=== PATIENT | male | born 1955 | race Native Hawaiian/Other Pacific Islander ===

== ENCOUNTER → 2018-09-30 | Outpatient (CLI) | payer MEDICARE, OTHER ==
[2018-09-30 14:45] LABS: Blood Urea Nitrogen 12 mg/dL (9-20)
--- NOTE | 2018-10-01 10:29 | CT ---
EXAMINATION TYPE: CT ChestAbdPelvis w con DATE OF EXAM: 09/30/2018 INDICATION: Follow up for lung CA COMPARISON: No comparisons at this location. CT DLP: 2264.3 mGycm CONTRAST: Performed with Oral Contrast and with IV Contrast, patient injected with 100 mL of Isovue 300. TECHNIQUE: Axial images at 5 mm thick sections. Reconstructed images in the coronal plane. Delayed images through the kidneys. FINDINGS: CT CHEST: Portion of the thyroid visualized is normal. There is a lobular mass at the anterior right apex measuring 1.8 x 1.7 cm. Series 4 image 16. There is a spiculated mass in the periphery of the right midlung measuring 3.0 by 2.5 cm. Series 4 im age 23. There is a nodular density within the periphery of the right lower lobe measuring 0.4 cm. Series 4 im age 35. Punctate density is in the anterior left upper lobe measuring 0.2 cm. Series 4 image 16. Some mild streak opacities within the lingula the medial right middle lobe. There is soft tissue thickening through the mediastinum. This may has some compression of the superio r vena cava. Contrast passes through this region. This extends to the hilar region on the right. The ascending aorta diameter at the level of the main pulmonary artery is 3.1 cm. The main pulmonary artery diameter at the bifurcation is 2.[address] ABDOMEN: Liver: There is a 5.5 cm cyst measuring 4 Hounsfield units in the superior posterior right lobe liver . Liver otherwise has a normal density without discrete masses or additional cysts. Spleen: Normal Pancreas: Normal Adrenal glands: The adrenal glands are normal. Gallbladder: Normal Kidneys: No masses are evident. No hydronephrosis is present. There is a 3.6 cm cyst on the superio r lateral aspect of the right kidney measuring 8 Hounsfield units. A 1.5 cm cyst measuring 3 Hounsfie ld units on the posterior mid right kidney. There is likely a 0.8 cm cortical renal cyst on the mid l ateral right kidney. Delayed images were obtained through the kidneys. Aorta: Vascular calcification is within the aorta. Renal arteries, celiac axis and superior mesenter ic arteries appear normal. There is an infrarenal abdominal aortic aneurysm measuring 4.0 cm. This ex tends to the aortic bifurcation. Inferior vena cava: Normal. CT PELVIS: Loops of bowel within the abdomen and pelvis are normal. There are loops of bowel which are incom pletely distended or lack oral contrast limiting their evaluation. Appendix: Normal as visualized. Urinary bladder: Normal. Genitourinary structures: Prostate is prominent. Scattered calcifications are present. Osseous structures: No suspicious lytic or sclerotic lesions. A 0.7 cm smooth margined round densitie s at the superior left S1 vertebral body may be a bone island. Some sclerosis is along the sacroiliac joint on the right. There appears to be a smooth margin hypodense area within the anterior thoracic vertebral body measuring 0.9 cm. Series 3 image 61. Multiple old rib fractures are evident on the rig ht. 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 Image 40. IMPRESSIONS: 1. Several right lung masses and nodules and mediastinal soft tissue thickening can be compatible wit h the patient's lung cancer. 2. Abdominal aortic aneurysm of 4.0 cm. 3. Renal and hepatic cysts.
== END | disposition home or self-care (01) ==
LOC: RADCTMAIN 14:03
PROVIDERS: ATTEND Internal Medicine Hematology & Oncology
DX: C34.91 Malignant neoplasm of unspecified part of right bronchus or lung (principal); I71.4 Abdominal aortic aneurysm, without rupture; K76.89 Other specified diseases of liver; N28.1 Cyst of kidney, acquired; Z91.011 Allergy to milk products
CPT/HCPCS: 82565; 84520; 71260; 74177; 36415; Q9967

== ENCOUNTER → 2018-12-16 | Outpatient (CLI) | payer MEDICARE, OTHER ==
--- NOTE | 2018-12-16 12:08 | CT ---
EXAMINATION TYPE: CT ChestAbdPelvis w con DATE OF EXAM: 12/16/2018 COMPARISON: CT chest abdomen pelvis September 30, 2018 and older outside CTs. HISTORY: Lung cancer progress study. Completed chemotherapy [address] DLP: 2462.5 mGycm. Automated Exposure Control for Dose Reduction was Utilized. CONTRAST: CT scan of the thorax, abdomen and pelvis is performed with IV Contrast, patient injected with 100ml mL of Isovue 300. FINDINGS: LUNGS: There is interval progression from most recent CT with spiculated right upper lung mass latera lly measuring 6.3 x 5.0 cm current study image 21 versus 3.0 x 2.5 cm prior study now abutting the ri ght pleural surface. Left lung remains clear. No pleural effusion or pneumothorax is evident. MEDIASTINUM: There it is redemonstration of confluent right paratracheal adenopathy encasing the SVC extending towards right hilar level where there is mass effect on the right upper and middle lobe br onchi, this measures roughly 4.6 x 3.7 cm axial image 21 not significantly changed in size from most recent CT axial image 23. There is anterior mediastinal extension adjacent to the right aspect of the ascending aorta redemonstrated. There are enlarging but subcentimeter left paratracheal and AP windo w lymph nodes. There is stable slightly enlarged subcarinal lymph node measuring 2.4 x 1.2 cm axial i mage 26 No cardiomegaly or pericardial effusion is seen. Coronary artery calcification is again see n. OTHER: Bilateral gynecomastia is redemonstrated left more prominent than right. LIVER/GB: There is stable 5.2 cm thin-walled cyst posterior right hepatic lobe. Liver remains diffuse ly low dense relative to spleen but there are now new innumerable heterogeneous hypodense masses, lar gest anterior left hepatic lobe measures 8.4 cm long axis axial image 56. PANCREAS: No significant abnormality is seen. SPLEEN: No significant abnormality is seen. ADRENALS: No significant abnormality is seen. KIDNEYS: Several simple appearing thin-walled cysts scattered throughout the right kidney are redemon strated.. BOWEL: Oral contrast reaches level of distal transverse colon. No suspicious small or large bowel dil atation is seen GENITAL ORGANS: No gross abnormality seen. LYMPH NODES: No greater than 1cm abdominal or pelvic lymph nodes are appreciated. OSSEOUS STRUCTURES: Osseous structures are demineralized. Slight S-shaped scoliotic curvature remains present. Osseous metastatic disease suspected there is sclerotic focus superior sternum coronal imag e 29 noted for reference new from outside CT. Sclerotic right lateral rib lesions suspected for refer ence coronal image 51. Some vague areas of sclerosis with mild height loss involving superior endplat es T10 and T7 vertebra are noted on current study. OTHER: No significant additional abnormality is seen. IMPRESSION: Interval disease progression with worsening right lung mass, stable mediastinal adenopath y but new hepatic and osseous metastatic disease.
== END | disposition home or self-care (01) ==
LOC: RADCTMAIN 09:25
PROVIDERS: ATTEND Internal Medicine Hematology & Oncology
DX: C34.91 Malignant neoplasm of unspecified part of right bronchus or lung (principal); C79.51 Secondary malignant neoplasm of bone; C78.7 Secondary malignant neoplasm of liver and intrahepatic bile duct; Z91.011 Allergy to milk products
CPT/HCPCS: 71260; 74177; Q9967

== ENCOUNTER 2019-01-30 11:20 | Inpatient (IN) | payer MEDICARE, OTHER ==
[2019-01-30] MEDS ORDERED: SODIUM CHLORIDE 0.9% 500 ML 500 ML IV STA (12:28)
[2019-01-30] MEDS ORDERED: IPRATROPIUM-ALBUTEROL 3 ML NEB INHALATION STA (12:33)
--- NOTE | 2019-01-30 12:33 | ED ---
General Adult HPI - General Chief complaint: Abdominal Pain Stated complaint: water retention/trouble urinating Time Seen by Provider: 01/30/19 12:22 Source: patient, family, RN notes reviewed, old records reviewed Mode of arrival: ambulatory Limitations: no limitations - History of Present Illness Initial comments: 63-year-old male history of lung cancer currently on chemotherapy presents with multiple complaints. Patient accompanied by family, they are able to give history. Patient has had decreased urine output, hematuria. Patient reported increased confusion over the past 3 days. He has not been eating or drinking well. His had significant diarrhea as well. Patient is currently on chemotherapy for lung cancer, last treatment was January 10. Patient denies any pain complaints. He does report mild cough, history of COPD, he is currently smoking. Somewhat confused during history. - Related Data Home Medications Medication Instructions Recorded Confirmed Cyclobenzaprine [Flexeril] 10 mg PO TID 09/16/18 01/30/19 Bimatoprost [Lumigan .01% Ophth 1 drop BOTH EYES DAILY 01/30/19 01/30/19 Soln] Hydrocodone/Acetaminophen [[place] 1 tab PO TID PRN 01/30/19 01/30/19 7.5-325] Prochlorperazine [Compazine] 10 mg PO Q6H 01/30/19 01/30/19 Timolol 0.5% Ophth Soln [Timoptic 1 drop BOTH EYES BID 01/30/19 01/30/19 0.5% Ophth Soln] traZODone HCL 50 mg PO HS 01/30/19 01/30/19 Allergies Allergy/AdvReac Type Severity Reaction Status Date / Time Milk Containing Products Allergy Unknown Verified 01/30/19 13:22 Review of Systems ROS Statement: Those systems with pertinent positive or pertinent negative responses have been documented in the HPI. ROS Other: All systems not noted in ROS Statement are negative. Past Medical History Past Medical History: Cancer, COPD Additional Past Medical History / Comment(s): LUNG WITH METASTASIS. History of Any Multi-Drug Resistant Organisms: None Reported Past Surgical History: Orthopedic Surgery Additional Past Surgical History / Comment(s): RIGHT KNEE SURGERY. Past Anesthesia/Blood Transfusion Reactions: No Reported Reaction Past Psychological History: No Psychological Hx Reported Smoking Status: Current every day smoker Past Alcohol Use History: None Reported Past Drug Use History: None Reported General Exam Limitations: no limitations General appearance: alert, in no apparent distress Head exam: Present: atraumatic, normocephalic Eye exam: Present: normal appearance, PERRL ENT exam: Present: mucous membranes dry Neck exam: Absent: normal inspection, tenderness Respiratory exam: Present: wheezes, rhonchi. Absent: respiratory distress Cardiovascular Exam: Present: normal rhythm, tachycardia GI/Abdominal exam: Present: soft, distended. Absent: tenderness, guarding, rebound Extremities exam: Present: normal inspection, normal capillary refill. Absent: pedal edema Neurological exam: Present: alert. Absent: motor sensory deficit Skin exam: Present: warm, dry, intact. Absent: cyanosis, diaphoretic Course Vital Signs 01/30/19 01/30/19 01/30/19 11:25 12:39 12:50 Temperature 97.3 F L Pulse Rate 115 H 84 84 Respiratory 24 Rate Blood Pressure 117/74 O2 Sat by Pulse 96 Oximetry Medical Decision Making - Medical Decision Making 63-year-old presenting with decreased urine output, confusion, currently being treated for lung cancer on chemotherapy. Stable vitals, nonfocal neurologic exam. Head CT is obtained negative for intracranial hemorrhage, chest x-ray shows persistent lung mass with concern for close obstructive pneumonia. Patient started on antibiotics in the emergency department he has a white blood cell count 10.6, hemoglobin 10.2, mild lactic acid 2.7. Urinalysis unremarkable. Patient will be admitted to Dr. Tijerina, case is discussed, oncology placed on consult. - Lab Data Result diagrams: 01/30/19 12:35 01/30/19 12:35 Lab Results 01/30/19 01/30/19 01/30/19 Range/Units 12:35 12:35 12:35 WBC 10.6 (3.8-10.6) k/uL RBC 3.59 L (4.30-5.90) m/uL Hgb 10.2 L (13.0-17.5) gm/dL Hct 34.0 L (39.0-53.0) % MCV 94.8 (80.0-100.0) fL MCH 28.4 (25.0-35.0) pg MCHC 30.0 L (31.0-37.0) g/dL RDW 16.4 H (11.5-15.5) % Plt Count 312 (150-450) k/uL Neutrophils % 76 % Lymphocytes % 15 % Monocytes % 4 % Eosinophils % 2 % Basophils % 1 % Neutrophils # 8.0 H (1.3-7.7) k/uL Lymphocytes # 1.6 (1.0-4.8) k/uL Monocytes # 0.5 (0-1.0) k/uL Eosinophils # 0.2 (0-0.7) k/uL Basophils # 0.1 (0-0.2) k/uL Hypochromasia Marked Anisocytosis Slight PT (9.0-12.0) sec INR (<1.2) APTT (22.0-30.0) sec VBG pH (7.31-7.41) VBG pCO2 (37-51) mmHg VBG HCO3 (24-28) mmol/L Sodium 137 (137-145) mmol/L Potassium 4.2 (3.5-5.1) mmol/L Chloride 102 (98-107) mmol/L Carbon Dioxide 25 (22-30) mmol/L Anion Gap 10 mmol/L BUN 10 (9-20) mg/dL Creatinine 0.58 L (0.66-1.25) mg/dL Est GFR (CKD-EPI)AfAm >90 (>60 ml/min/1.73 sqM) Est GFR (CKD-EPI)NonAf >90 (>60 ml/min/1.73 sqM) Glucose 98 (74-99) mg/dL Plasma Lactic Acid Flavio 2.7 H* (0.7-2.0) mmol/L Calcium 9.1 (8.4-10.2) mg/dL Total Bilirubin 1.0 (0.2-1.3) mg/dL AST 62 H (17-59) U/L ALT 59 (21-72) U/L Alkaline Phosphatase 309 H (38-126) U/L Total Protein 6.7 (6.3-8.2) g/dL Albumin 3.0 L (3.5-5.0) g/dL Urine Color Urine Appearance (Clear) Urine pH (5.0-8.0) Ur Specific [place] (1.001-1.035) Urine Protein (Negative) Urine Glucose (UA) (Negative) Urine Ketones (Negative) Urine Blood (Negative) Urine Nitrite (Negative) Urine Bilirubin (Negative) Urine Urobilinogen (<2.0) mg/dL Ur Leukocyte Esterase (Negative) Urine RBC (0-5) /hpf Urine WBC (0-5) /hpf Ur Squamous Epith Cells (0-4) /hpf Amorphous Sediment (None) /hpf Hyaline Casts (0-2) /lpf Urine Mucus (None) /hpf 01/30/19 01/30/19 01/30/19 Range/Units 12:35 12:35 13:50 WBC (3.8-10.6) k/uL RBC (4.30-5.90) m/uL Hgb (13.0-17.5) gm/dL Hct (39.0-53.0) % MCV (80.0-100.0) fL MCH (25.0-35.0) pg MCHC (31.0-37.0) g/dL RDW (11.5-15.5) % Plt Count (150-450) k/uL Neutrophils % % Lymphocytes % % Monocytes % % Eosinophils % % Basophils % % Neutrophils # (1.3-7.7) k/uL Lymphocytes # (1.0-4.8) k/uL Monocytes # (0-1.0) k/uL Eosinophils # (0-0.7) k/uL Basophils # (0-0.2) k/uL Hypochromasia Anisocytosis PT 11.5 (9.0-12.0) sec INR 1.1 (<1.2) APTT 24.1 (22.0-30.0) sec VBG pH 7.40 (7.31-7.41) VBG pCO2 43 (37-51) mmHg VBG HCO3 26 (24-28) mmol/L Sodium (137-145) mmol/L Potassium (3.5-5.1) mmol/L Chloride (98-107) mmol/L Carbon Dioxide (22-30) mmol/L Anion Gap mmol/L BUN (9-20) mg/dL Creatinine (0.66-1.25) mg/dL Est GFR (CKD-EPI)AfAm (>60 ml/min/1.73 sqM) Est GFR (CKD-EPI)NonAf (>60 ml/min/1.73 sqM) Glucose (74-99) mg/dL Plasma Lactic Acid Flavio (0.7-2.0) mmol/L Calcium (8.4-10.2) mg/dL Total Bilirubin (0.2-1.3) mg/dL AST (17-59) U/L ALT (21-72) U/L Alkaline Phosphatase (38-126) U/L Total Protein (6.3-8.2) g/dL Albumin (3.5-5.0) g/dL Urine Color Yellow Urine Appearance Clear (Clear) Urine pH 6.5 (5.0-8.0) Ur Specific [place] 1.027 (1.001-1.035) Urine Protein 1+ H (Negative) Urine Glucose (UA) Negative (Negative) Urine Ketones Negative (Negative) Urine Blood Negative (Negative) Urine Nitrite Negative (Negative) Urine Bilirubin 1+ H (Negative) Urine Urobilinogen 6.0 (<2.0) mg/dL Ur Leukocyte Esterase Negative (Negative) Urine RBC <1 (0-5) /hpf Urine WBC 1 (0-5) /hpf Ur Squamous Epith Cells 1 (0-4) /hpf Amorphous Sediment Rare H (None) /hpf Hyaline Casts 4 H (0-2) /lpf Urine Mucus Moderate H (None) /hpf Disposition Clinical Impression: Dehydration, Lactic acidosis, Pneumonia Disposition: ADMITTED IP TO THIS [facility] Condition: Stable Is patient prescribed a controlled substance at d/c from ED?: No Referrals: Clay Mike MD [Primary Care Provider] - 1-2 days Decision to Admit Reason: Admit from EC Decision Date: 01/30/19 Decision Time: 15:18
[2019-01-30 13:11] LABS: Anisocytosis Slight; Basophils # (A) 0.1 k/uL (0-0.2); Basophils % (A) 1 %; Eosinophils # (A) 0.2 k/uL (0-0.7); Eosinophils % (A) 2 %; HGB 10.2 gm/dL (13.0-17.5); Hypochromasia Marked; Lymphocytes # (A) 1.6 k/uL (1.0-4.8); Lymphocytes % (A) 15 %; MCH 28.4 pg (25.0-35.0); MCV 94.8 fL (80.0-100.0); Mean Platelet Volume 7.8; Monocytes # (A) 0.5 k/uL (0-1.0); Monocytes % (A) 4 %; Neutrophils % (A) 76 %; Platelet Count 312 k/uL (150-450); RBC 3.59 m/uL (4.30-5.90); RDW 16.4 % (11.5-15.5); WBC 10.6 k/uL (3.8-10.6)
[2019-01-30 13:21] LABS: VBG PH 7.4 (7.31-7.41)
[2019-01-30 13:23] LABS: INR 1.1 (<1.2); Partial Thromboplastin Time 24.1 sec (22.0-30.0); Prothrombin Time 11.5 sec (9.0-12.0)
--- NOTE | 2019-01-30 13:23 | CT ---
EXAMINATION TYPE: CT brain wo con DATE OF EXAM: 01/30/2019 COMPARISON: Pain INDICATION: altered mental status, lung CA DLP: 1058.4 mGycm, Automated exposure control for dose reduction was used. CONTRAST: None CT of the brain is performed utilizing 3 mm thick sections through the posterior fossa and 3 mm thick sections through the remaining calvarium. Study is performed within 24 hours of arrival to the hosp ital. No abnormal hyperdensity is present to suggest an acute intracranial hemorrhage. No mass lesion is evident. No acute infarcts are evident. Ventricles and sulci are appropriate for the patient age. Some minimal mucosal thickening is within ethmoid air cells and maxillary sinuses. Mastoid air cells are clear. No suspicious changes to suggest metastatic disease within the intracranial or calvarial skull. IMPRESSIONS: 1. No acute intracranial process.
--- NOTE | 2019-01-30 13:29 | XR ---
EXAMINATION TYPE: XR chest 2V DATE OF EXAM: 01/30/2019 COMPARISON: CT chest 12/16/2018 INDICATION: Cough TECHNIQUE: Frontal and lateral views of the chest are obtained. FINDINGS: The heart size is normal. The pulmonary vasculature is normal. There appears to be a mass in the upper outer aspect right upper lobe. Additional infiltrate is prese nt. Lung masses present on the CT exam. IMPRESSION: 1. Persistent mass periphery right upper lobe with adjacent infiltrate. Some superimposed pneumonia s hould be considered.
[2019-01-30 13:30] LABS: ALT 59 U/L (21-72); AST 62 U/L (17-59); Alkaline Phosphatase 309 U/L (38-126); Anion Gap 10 mmol/L; Blood Urea Nitrogen 10 mg/dL (9-20); Calcium 9.1 mg/dL (8.4-10.2); Carbon Dioxide 25 mmol/L (22-30); Chloride 102 mmol/L (98-107); Glucose 98 mg/dL (74-99); Potassium 4.2 mmol/L (3.5-5.1); Sodium 137 mmol/L (137-145); Total Protein 6.7 g/dL (6.3-8.2)
[2019-01-30] MEDS ORDERED: CEFEPIME 2 GM in SODIUM CHLORIDE 0.9% 100 ML IVPB STA (14:26)
[2019-01-30] MEDS ORDERED: VANCOMYCIN IV PER PHARMACY 1 EACH MISC MISCELLANE PRN (14:26)
[2019-01-30] MEDS ORDERED: VANCOMYCIN 2,000 MG in SODIUM CHLORIDE 0.9% 500 ML 500 ML IVPB STA (14:43)
[2019-01-30 14:46] LABS: Amorphous Sediment,Urine Rare /hpf; Appearance,Urine Clear (Clear); Bilirubin,Urine 1+ (Negative); Blood,Urine Negative (Negative); Color,Urine Yellow; Glucose,Urine (UA) Negative (Negative); Hyaline Casts,Urine 4 /lpf (0-2); Ketones,Urine Negative (Negative); Leukocyte Esterase,Urine Negative (Negative); Mucus,Urine Moderate /hpf; Nitrite,Urine Negative (Negative); PH, Urine 6.5 (5.0-8.0); Protein,Urine 1+ (Negative); RBC,Urine <1 /hpf (0-5); Specific Gravity,Urine 1.027 (1.001-1.035); Squamous Epithelial Cell,Urine 1 /hpf (0-4); WBC,Urine 1 /hpf (0-5)
[2019-01-30] MEDS ORDERED: HYDROmorphone 0.5 MG/0.5 ML SYRINGE IVP PRN (15:11)
[2019-01-30] MEDS ORDERED: NALOXONE 0.4 MG/ML 1 ML VIAL IV PRN (15:11)
[2019-01-30] MEDS ORDERED: ACETAMINOPHEN TAB 325 MG TAB PO PRN (15:11)
[2019-01-30] MEDS: SODIUM CHLORIDE 0.9% 1,000 ML IV SCH (19:30)
[2019-01-30] MEDS ORDERED: HYDROcodone/APAP 7.5-325MG 1 EACH TAB PO PRN (20:09)
[2019-01-30 20:19] VITALS: BMI 33.0
[2019-01-30] MEDS ORDERED: IPRATROPIUM-ALBUTEROL 3 ML NEB INHALATION PRN (20:41)
[2019-01-30 21:07] LABS: ABG Base Excess 2.9 mmol/L; ABG HCO3 27 mmol/L (21-25); ABG Oxygen Saturation 93.3 % (94-97); ABG PCO2 41 mmHg (35-45); ABG PH 7.43 (7.35-7.45); ABG PO2 69 mmHg (83-108); ABG TCO2 29 mmol/L (19-24)
[2019-01-30] MEDS: CYCLOBENZAPRINE 10 MG TAB PO SCH (22:13)
[2019-01-30 22:14] LABS: Glucose,Whole Blood 84 mg/dL (75-99)
[2019-01-30] MEDS: TIMOLOL 0.5% OPHTH DROPS 5 ML BTL BOTH EYES SCH (22:26)
[2019-01-31] MEDS: VANCOMYCIN 1,750 MG in SODIUM CHLORIDE 0.9% 500 ML 500 ML IVPB SCH ×4 (00:31→23:43)
[2019-01-31] MEDS: SODIUM CHLORIDE 0.9% 1,000 ML IV SCH ×2 (06:30→22:17)
[2019-01-31] MEDS ORDERED: LORazepam 2 MG/ML INJ IV PRN (08:01)
[2019-01-31] MEDS ORDERED: LATANOPROST 0.005% OPHTH DROPS 2.5 ML BTL BOTH EYES SCH (09:00)
[2019-01-31] MEDS: TIMOLOL 0.5% OPHTH DROPS 5 ML BTL BOTH EYES SCH ×2 (09:03→22:13)
[2019-01-31] MEDS: CYCLOBENZAPRINE 10 MG TAB PO SCH ×4 (09:03→22:13)
[2019-01-31] MEDS: IPRATROPIUM-ALBUTEROL 3 ML NEB INHALATION SCH ×4 (09:47→20:11)
--- NOTE | 2019-01-31 11:34 | MR ---
EXAMINATION TYPE: MR brain wo/w con DATE OF EXAM: 01/31/2019 COMPARISON: 07/28/2018 MRI, CT scan 01/30/2019 HISTORY: Lung cancer, mental status changes, aphasia TECHNIQUE: Multiplanar, multisequence images of the brain and brainstem is performed without and with IV contras t, utilizing 11.5 mL intravenous Gadavist . FINDINGS: Diffusion weighted images demonstrate no evidence of a recent infarct or other diffusion ab normality. Changes of chronic sinusitis noted. Mild generalized degenerative change seen. Areas of abnormal sign al seen on FLAIR imaging in the white matter are nonspecific but most of remote microvascular ischemi a. Midline structures demonstrate normal morphology. The craniocervical junction appears within normal limits. Post contrast images demonstrate no abnormal enhancement. The dural venous sinuses appear pa tent. There is prominence of the superior ophthalmic veins bilaterally. Due to the protocol used secondary to patient motion assessment of the cavernous sinus is limited and could be correlated with CT scan. Dural venous sinuses enhance normally. IMPRESSION: 1. No diagnostic evidence of enhancing mass. The exam was severely limited due to motion artifact. 2. Dural venous sinuses are patent. Assessment of the cavernous sinus is limited. Superior ophthalmic veins appear prominent bilaterally which can sometimes be associated with caverno us sinus abnormality or thrombosis. Recommend a dedicated CT scan given the limitation exam to assess the cavernous sinus. Report called to the patient's nurse. 3. Nonspecific white matter changes correlate for remote white matter ischemia.
--- NOTE | 2019-01-31 12:22 | P.CONS ---
History of Present Illness - Reason for Consult Consult date: 01/31/19 Extensive Stage Small Cell Lung Ca on yervoy/opdivo Requesting physician: Yunier Dodson - Chief Complaint mental status changes - History of Present Illness his is a very nice patient who presented with acute dyspnea to [facility] in July/2018,CT scan of chest revealed large right paramediastinal mass (10.1x8.6x12.6cm) that encircled the SVC,he was transferred to [facility],was evaluated by rad/onc and med/onc,diagnostic bronchoscopy done on 07/29/2018,siddiqui needle of mediastinal mass and bronchial washing were positive for small cell lung carcinoma. Brain MRI of 07/28/2018 was negative for metastatic disease. CT scan of abdomen/pelvis on 07/28/2018 revealed intermediately attenuating lesions in the liver,borderline enlarged portal hepatic and portal caval nodes,lucent lesions in spine and pelvis,the finding were suspicious for metas tatic disease. It was decided to proceed with first cycle of carboplatin/etoposide as inpatient at [facility],which he tolerated okay,subsequently,he was discharged from [facility] and had cycle#2 as outpatient on 08/26/2018. He resumed cycle#3 in our office[address] Repeat CT scan of chest/abdomen/pelvis on 09/30/2018 revealed improvement in his disease. He completed 4 cycles of carboplatin/[employer]-16 on 10/09/2018. Repeat CT scan of chest/abdomen/pelvis on 12/16/2018 revealed evidence of diseas e progression,significant increase in size in RUL mass On 01/10/2019,he started opdivo/yervoy Patient was brought into be evaluated by evaluated by Emergency with increasing mental staatus changes, hallucinations, decreased alertness, increased abdominal, throat, neck, upper and lower extremity swelling and inability to urinate. Per his son Bill he has had persistent diarrhea the past week without relief, which has made for increased fatigue. He was drinking and eating the first few days, although now he has not the past couple days. He states he has not been able to urinate, currently catheter in place. He is able to be awakened but not conversating, His ABGs are sqequate on his home dose oxygen nasal canula. Abdomen is very firm and distended and lung sounds coarse. MRI Brain was attempted but extra movement was difficult to evaluate full. Review of Systems ROS unobtainable: due to mental status Past Medical History Past Medical History: Cancer, COPD, Pneumonia Additional Past Medical History / Comment(s): LUNG WITH METASTASIS skull, kidneys, bone chemo last he believes november, going blind,glaucoma, using wheelchair mostly at home History of Any Multi-Drug Resistant Organisms: None Reported Past Surgical History: Orthopedic Surgery Additional Past Surgical History / Comment(s): RIGHT KNEE SURGERY. Past Anesthesia/Blood Transfusion Reactions: No Reported Reaction Past Psychological History: Depression Smoking Status: Current every day smoker Past Alcohol Use History: None Reported Additional Past Alcohol Use History / Comment(s): smokes 2 packs in 1 week Past Drug Use History: None Reported - Past Family History Father Family Medical History: Cancer Medications and Allergies Home Medications Medication Instructions Recorded Confirmed Type Cyclobenzaprine [Flexeril] 10 mg PO TID 09/16/18 01/30/19 History Bimatoprost [Lumigan .01% Ophth 1 drop BOTH EYES DAILY 01/30/19 01/30/19 History Soln] Hydrocodone/Acetaminophen [[place] 1 tab PO TID PRN 01/30/19 01/30/19 History 7.5-325] Prochlorperazine [Compazine] 10 mg PO Q6H 01/30/19 01/30/19 History Timolol 0.5% Ophth Soln [Timoptic 1 drop BOTH EYES BID 01/30/19 01/30/19 History 0.5% Ophth Soln] traZODone HCL 50 mg PO HS 01/30/19 01/30/19 History Allergies Allergy/AdvReac Type Severity Reaction Status Date / Time Milk Containing Products Allergy Unknown Verified 01/30/19 13:22 Physical Exam Vitals: Vital Signs Temp Pulse Pulse Resp BP BP Pulse Ox 01/31/19 10:00 84 01/31/19 09:47 84 01/31/19 05:00 97.4 F L 104 H 16 111/71 99 01/31/19 03:06 97 01/31/19 01:51 90 16 105/71 97 01/30/19 21:11 97.9 F 107 H 16 129/76 94 L 01/30/19 19:18 107 H 20 109/74 95 01/30/19 17:47 97.7 F 120 H 16 90/72 92 L 01/30/19 12:50 84 01/30/19 12:39 84 Intake and Output 01/30/19 01/31/19 01/31/19 22:59 06:59 14:59 Intake Total 1979 Balance 1979 Intake: Intake, IV Titration 800 Amount Sodium Chloride 0.9% 1, 300 000 ml @ 75 mls/hr IV . [id number] VIVIENNE Rx#:[id number] Vancomycin 1,750 mg In 500 Sodium Chloride 0.9% 500 ml 500 ml @ 167 mls/hr IVPB Q8HR VIVIENNE Rx#: [id number] Oral 1180 Other: Voiding Method Urinal # Voids 1 # Bowel Movements 1 gen: Awakens to stimuli, NAD, Breathing is labored Mouth: No mouth sores or thrush, mucus membranes dry Neck: Thick, supple, no increased adenopathy Heart: Tachy Reg Lungs: Diminished throughout, increased effort noted Abdomen: Obese, Destended, Firm, non tender Ext: Upper and lower extremity edema noted. \ Neuro: Unable to follow commands Results CBC & Chem 7: 01/31/19 12:21 01/31/19 12:21 Labs: Abnormal Lab Results - Last 24 Hours (Table) 01/30/19 01/30/19 01/30/19 Range/Units 12:35 12:35 12:35 RBC 3.59 L (4.30-5.90) m/uL Hgb 10.2 L (13.0-17.5) gm/dL Hct 34.0 L (39.0-53.0) % MCHC 30.0 L (31.0-37.0) g/dL RDW 16.4 H (11.5-15.5) % Neutrophils # 8.0 H (1.3-7.7) k/uL ABG pO2 (83-108) mmHg ABG HCO3 (21-25) mmol/L ABG Total CO2 (19-24) mmol/L ABG O2 Saturation (94-97) % Creatinine 0.58 L (0.66-1.25) mg/dL Plasma Lactic Acid Flavio 2.7 H* (0.7-2.0) mmol/L AST 62 H (17-59) U/L Alkaline Phosphatase 309 H (38-126) U/L Albumin 3.0 L (3.5-5.0) g/dL Urine Protein (Negative) Urine Bilirubin (Negative) Amorphous Sediment (None) /hpf Hyaline Casts (0-2) /lpf Urine Mucus (None) /hpf 01/30/19 01/30/19 01/30/19 Range/Units 13:50 16:32 21:04 RBC (4.30-5.90) m/uL Hgb (13.0-17.5) gm/dL Hct (39.0-53.0) % MCHC (31.0-37.0) g/dL RDW (11.5-15.5) % Neutrophils # (1.3-7.7) k/uL ABG pO2 69 L (83-108) mmHg ABG HCO3 27 H (21-25) mmol/L ABG Total CO2 29 H (19-24) mmol/L ABG O2 Saturation 93.3 L (94-97) % Creatinine (0.66-1.25) mg/dL Plasma Lactic Acid Flavio 2.5 H* (0.7-2.0) mmol/L AST (17-59) U/L Alkaline Phosphatase (38-126) U/L Albumin (3.5-5.0) g/dL Urine Protein 1+ H (Negative) Urine Bilirubin 1+ H (Negative) Amorphous Sediment Rare H (None) /hpf Hyaline Casts 4 H (0-2) /lpf Urine Mucus Moderate H (None) /hpf CT scan - chest: report reviewed MRI - head: report reviewed Assessment and Plan Plan: Assessment and Recommendations: Acute Mental Status Changes: Lethargy and Hallucinations: - MRI without acute etiology and no clear metstatic disease, rec for Sinus evaluation placed per IR - Sosa cultures in progress Pancreatitis: - Possible immune related amylase mild elevation and await Lipase Diffuse Swelling Bilateral Upper and Lower Extremities: - Obtain CT Scan Chest/Abdomen and Pelvis Diarrhea: - Obtain Stool Studies - Possibility of Immune related colitis, if this is confirmed high dose steroid intiation Small Cell Lung Cancer - Extensive Stage: - Previously Treated with Carboplatin and VP16 07/2018 through 09/2018 (4 Cycles) - Recent treatment with Yervoy and Opdivo - Status Post One Treatment with Oprivo and Yervoy on 01/10/19 Urinary Retention: Dysuria - Urinalysis and Culture - Santillan in place and draining Debility and Progressive Weakness: - Increase Activity once more alert - PT/OT Severe Protein Calorie Malnutrition: - - Likely related to decreased PO intake and diffuse generalized edema - POtential secondary effect of treatment with yervoy and opdivo - Dieticien, once cleared to swallow without aspiration risk - Currently too lethargic to drink, but did receive ativan prior to MRI Plan: - Await CT scans Chest, Abdomen, Pelvis - Reviewed MRI, will review CT sinus although this concern would likely not cause the patients overall clinical presentation - Will need to consider Infectious etiology; Consult placed for Interventional radiology for CSF Lumbar Puncture - Send fluid for cytology, albumin, meningitis panel, protein, glucose, viral PCR, Aerobic and aneroid Cultures, Gram Stain Cultures and sensitivity, and Fungal Cultures PLease - After Reviewing the above will introduce corticosteroids for treatment of immune related etiology. - Initiate imipenum for possible pneumonia and pancreatitis - Daily CBC/CMP Physician Attest: I have completed the full history and physical and agree with above dictation by May Cristina NP. Dictated as a scribe
[2019-01-31 12:24] LABS: ABG Base Excess 2.3 mmol/L; ABG HCO3 27 mmol/L (21-25); ABG Oxygen Saturation 94.7 % (94-97); ABG PCO2 47 mmHg (35-45); ABG PH 7.38 (7.35-7.45); ABG PO2 77 mmHg (83-108); ABG TCO2 29 mmol/L (19-24)
[2019-01-31 12:51] LABS: ALT 47 U/L (21-72); AST 50 U/L (17-59); Albumin 2.7 g/dL (3.5-5.0); Alkaline Phosphatase 261 U/L (38-126); Amylase 264 U/L (30-110); Anion Gap 7 mmol/L; Blood Urea Nitrogen 11 mg/dL (9-20); Calcium 9.1 mg/dL (8.4-10.2); Carbon Dioxide 26 mmol/L (22-30); Chloride 103 mmol/L (98-107); Glucose 87 mg/dL (74-99); INR 1.1 (<1.2); LDH 537 U/L (313-618); Magnesium 1.8 mg/dL (1.6-2.3); Partial Thromboplastin Time 23.9 sec (22.0-30.0); Potassium 4.3 mmol/L (3.5-5.1); Prothrombin Time 11.6 sec (9.0-12.0); Sodium 136 mmol/L (137-145); Total Bilirubin 0.8 mg/dL (0.2-1.3); Total Protein 6.1 g/dL (6.3-8.2)
[2019-01-31 12:54] LABS: Anisocytosis Slight; Basophils # (A) 0.1 k/uL (0-0.2); Basophils % (A) 1 %; Eosinophils # (A) 0.2 k/uL (0-0.7); Eosinophils % (A) 2 %; HCT 31.4 % (39.0-53.0); HGB 9.5 gm/dL (13.0-17.5); Hypochromasia Marked; Lymphocytes # (A) 1.3 k/uL (1.0-4.8); Lymphocytes % (A) 14 %; MCH 28.7 pg (25.0-35.0); MCHC 30.3 g/dL (31.0-37.0); MCV 94.9 fL (80.0-100.0); Mean Platelet Volume 8.3; Monocytes # (A) 0.4 k/uL (0-1.0); Monocytes % (A) 5 %; Neutrophils # (A) 7.3 k/uL (1.3-7.7); Neutrophils % (A) 77 %; Platelet Count 307 k/uL (150-450); RBC 3.31 m/uL (4.30-5.90); RDW 16.3 % (11.5-15.5); WBC 9.5 k/uL (3.8-10.6)
--- NOTE | 2019-01-31 14:46 | HP ---
HISTORY AND PHYSICAL CHIEF COMPLAINT: Shortness of breath. HISTORY OF PRESENT ILLNESS: This is the known admission for this 63-year-old white male who is known to have a large pulmonary neoplasm in the right upper lobe. He came to the emergency room with shortness of breath and was identified as having pneumonitis in the area of the tumor. He is very difficult to get a history from. He has dysarthria and it is not clear if he is oriented. It looks as though at home he has been on Compazine, trazodone, Lumigan eye drops, Flexeril, Vicodin and timolol eyedrops. Review of systems is not easily obtained. Laboratory studies reveal he has a hemoglobin of 9.5. Blood gases reveal a CO2 of 47 with an O2 of 69 and then 77. His lactic acid was elevated at 2.5. PHYSICAL EXAMINATION: Blood pressure is 109/67, pulse of 101, and temperature 97.4. In general he appears to be obese and somewhat lethargic. Skin is dry. Head, ears, eyes, nose, mouth and throat are unremarkable. His neck could not be examined due to its adiposity. Chest demonstrates breath sounds on both sides, but there are scattered rales. Cardiac exam demonstrates what sounded like sinus rhythm. Abdomen is protuberant, soft, nontender. Extremities are normal. Neurologically he had trouble speaking, and it was not clear that his cognition was normal. He is admitted to the hospital with the diagnoses of: 1. Bronchopneumonia. 2. Carcinoma of the lung. 3. Dysarthria and confusion. 4. Rule out central nervous system metastases. 5. Obesity. PLAN: 1. Bed rest. 2. IV fluids. 3. IV antibiotics and updrafts. 4. Consult Oncology. MMODL / IJN: [id number] /
--- NOTE | 2019-01-31 16:21 | P.CNPUL ---
History of Present Illness Consult date: 01/31/19 Requesting physician: Rajeev Tijerina Reason for consult: other Chief complaint: Abdominal pain, urinary retention, fluid retention History of present illness: This is a 63-year-old white male patient with history of small cell lung carcinoma that was diagnosed in July 2018, status post chemotherapy, currently on immunotherapy, was brought into the hospital on 01/30/2019 for complaints of abdominal pain, diarrhea, increased confusion, decreased urine output, some hematuria. Patient remains confused, he is a poor historian, the history was obtained from the chart. Initially computed tomography scan of the chest in July 2018 revealed a lot right paramediastinal mass encircling the SVC. Patient was hospitalized at that time for dyspnea. 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 Patient follows with Dr. Drake. Most recent computed tomography scan of the chest/abdomen/pelvis in November 2018 reveals evidence of disease progr ession and significant increase in the size of a right upper lobe mass, she was started on immunotherapy in the form of Yervoy/Opdivo. Brain CT showed no acute intracranial process, chest x-ray showed persistent mass in the right upper lobe with adjacent infiltrate. MRI of the brain was obtained, and showed no diagnostic evidence of enhancing mass, and possibility of cavernous sinus abnormality. Labs showed a white blood cell count of 10.6, hemoglobin of 10.2, INR 1.1, electrolytes are within normal limits, BUN is 10, creatinine 0.58, AST was 62, ALT was 59, alkaline phosphatase was 309, LDH was 537, albumin was 2.7, amylase was 264, lipase was 2507, cortisol was 20. Urinalysis showed 1+ bilirubin, negative for lupus, no significant red blood cells oh WBCs. Her evaluation patient is mumbling, he is somnolent, blood gas was obtained and it showed a pO2 of 77, pCO2 47, and pH of 7.38. No acute distress, patient still remains confused, no evidence of respiratory difficulty, minute is obese, but nontender, and the patient is a current smoker. Does have a history of COPD, previous episodes of pneumonia, depression. No Fever or chills. CT of the abdomen and pelvis is pending. This discussed with medical oncology. Chest x- ray has been reviewed with Dr. Carey, doubt underlying pneumonia, right upper lobe opacity related to underlying lung cancer. No cough, no chest congestion. Review of Systems All systems: negative Constitutional: Reports lethargy, Reports weakness, Denies chills, Denies fever Eyes: denies blurred vision, denies pain Ears, nose, mouth and throat: Denies headache, Denies sore throat Cardiovascular: Denies chest pain, Denies shortness of breath Respiratory: Denies cough Gastrointestinal: Denies abdominal pain, Denies diarrhea, Denies nausea, Denies vomiting Musculoskeletal: Denies myalgias Integumentary: Denies pruritus, Denies rash Neurological: Denies numbness, Denies weakness Psychiatric: Denies anxiety, Denies depression Endocrine: Denies fatigue, Denies weight change Past Medical History Past Medical History: Cancer, COPD, Pneumonia Additional Past Medical History / Comment(s): LUNG WITH METASTASIS skull, kidneys, bone chemo last he believes november, going blind,glaucoma, using wheelchair mostly at home History of Any Multi-Drug Resistant Organisms: None Reported Past Surgical History: Orthopedic Surgery Additional Past Surgical History / Comment(s): RIGHT KNEE SURGERY. Past Anesthesia/Blood Transfusion Reactions: No Reported Reaction Past Psychological History: Depression Smoking Status: Current every day smoker Past Alcohol Use History: None Reported Additional Past Alcohol Use History / Comment(s): smokes 2 packs in 1 week Past Drug Use History: None Reported - Past Family History Father Family Medical History: Cancer Medications and Allergies Home Medications Medication Instructions Recorded Confirmed Type Cyclobenzaprine [Flexeril] 10 mg PO TID 09/16/18 01/30/19 History Bimatoprost [[place] .01% Ophth 1 drop BOTH EYES DAILY 01/30/19 01/30/19 History Soln] Hydrocodone/Acetaminophen [[place] 1 tab PO TID PRN 01/30/19 01/30/19 History 7.5-325] Prochlorperazine [Compazine] 10 mg PO Q6H 01/30/19 01/30/19 History Timolol 0.5% Ophth Soln [Timoptic 1 drop BOTH EYES BID 01/30/19 01/30/19 History 0.5% Ophth Soln] traZODone HCL 50 mg PO HS 01/30/19 01/30/19 History Allergies Allergy/AdvReac Type Severity Reaction Status Date / Time Milk Containing Products Allergy Unknown Verified 01/30/19 13:22 Physical Exam Vitals: Vital Signs Temp Pulse Pulse Resp BP BP Pulse Ox 01/31/19 13:40 100 01/31/19 13:26 100 01/31/19 11:55 97.4 F L 101 H 18 109/67 93 L 01/31/19 10:00 84 01/31/19 09:47 84 01/31/19 05:00 97.4 F L 104 H 16 111/71 99 01/31/19 03:06 97 01/31/19 01:51 90 16 105/71 97 01/30/19 21:11 97.9 F 107 H 16 129/76 94 L 01/30/19 19:18 107 H 20 109/74 95 01/30/19 17:47 97.7 F 120 H 16 90/72 92 L Intake and Output 01/31/19 01/31/19 01/31/19 06:59 14:59 22:59 Intake Total 1979 875 Balance 1979 875 Intake: Intake, IV Titration 800 875 Amount Sodium Chloride 0.9% 1, 300 375 000 ml @ 75 mls/hr IV . [id number] VIVIENNE Rx#:[id number] Vancomycin 1,750 mg In 500 500 Sodium Chloride 0.9% 500 ml 500 ml @ 167 mls/hr IVPB Q8HR VIVIENNE Rx#: [id number] Oral 1180 Other: Voiding Method Urinal # Voids 1 2 # Bowel Movements 1 Weight 113.398 kg GENERAL EXAM: Confused, sleepy, but arousable, 63-year-old obese white male, comfortable in no apparent distress. HEAD: Normocephalic/atraumatic. EYES: Normal reaction of pupils, equal size. Conjunctiva pink, sclera white. NOSE: Clear with pink turbinates. THROAT: No erythema or exudates. NECK: No masses, no JVD, no thyroid enlargement, no adenopathy. CHEST: No chest wall deformity. Symmetrical expansion. LUNGS: Equal air entry with no crackles, wheeze, rhonchi or dullness. CVS: Regular rate and rhythm, normal S1 and S2, no gallops, no murmurs, no rubs ABDOMEN: Soft, nontender. No hepatosplenomegaly, normal bowel sounds, no guarding or rigidity. EXTREMITIES: No clubbing, no edema, no cyanosis, 2+ pulses and upper and lower extremities. MUSCULOSKELETAL: Muscle strength and tone normal. SPINE: No scoliosis or deformity SKIN: No rashes CENTRAL NERVOUS SYSTEM: Confused, sleepy, No focal deficits, tone is normal in all 4 extremities. Results - Laboratory Findings CBC and BMP: 01/31/19 12:21 01/31/19 12:21 ABG ABG pH 7.38 (7.35-7.45) 01/31/19 12:17 ABG pCO2 47 mmHg (35-45) H 01/31/19 12:17 ABG pO2 77 mmHg (83-108) L 01/31/19 12:17 ABG O2 Saturation 94.7 % (94-97) 01/31/19 12:17 PT/INR, D-dimer PT 11.6 sec (9.0-12.0) 01/31/19 12:21 INR 1.1 (<1.2) 01/31/19 12:21 Abnormal lab findings: Abnormal Labs 01/30/19 01/30/19 01/30/19 12:35 12:35 12:35 RBC 3.59 L Hgb 10.2 L Hct 34.0 L MCHC 30.0 L RDW 16.4 H Neutrophils # 8.0 H ABG pCO2 ABG pO2 ABG HCO3 ABG Total CO2 ABG O2 Saturation Sodium Creatinine 0.58 L Plasma Lactic Acid Flavio 2.7 H* AST 62 H Alkaline Phosphatase 309 H Total Protein Albumin 3.0 L Amylase Lipase Urine Protein Urine Bilirubin Amorphous Sediment Hyaline Casts Urine Mucus 01/30/19 01/30/19 01/30/19 13:50 16:32 21:04 RBC Hgb Hct MCHC RDW Neutrophils # ABG pCO2 ABG pO2 69 L ABG HCO3 27 H ABG Total CO2 29 H ABG O2 Saturation 93.3 L Sodium Creatinine Plasma Lactic Acid Flavio 2.5 H* AST Alkaline Phosphatase Total Protein Albumin Amylase Lipase Urine Protein 1+ H Urine Bilirubin 1+ H Amorphous Sediment Rare H Hyaline Casts 4 H Urine Mucus Moderate H 01/31/19 01/31/19 01/31/19 12:17 12:21 12:21 RBC 3.31 L Hgb 9.5 L Hct 31.4 L MCHC 30.3 L RDW 16.3 H Neutrophils # ABG pCO2 47 H ABG pO2 77 L ABG HCO3 27 H ABG Total CO2 29 H ABG O2 Saturation Sodium 136 L Creatinine 0.54 L Plasma Lactic Acid Flavio AST Alkaline Phosphatase 261 H Total Protein 6.1 L Albumin 2.7 L Amylase 264 H Lipase Urine Protein Urine Bilirubin Amorphous Sediment Hyaline Casts Urine Mucus 01/31/19 12:21 RBC Hgb Hct MCHC RDW Neutrophils # ABG pCO2 ABG pO2 ABG HCO3 ABG Total CO2 ABG O2 Saturation Sodium Creatinine Plasma Lactic Acid Flavio AST Alkaline Phosphatase Total Protein Albumin Amylase Lipase 2507 H Urine Protein Urine Bilirubin Amorphous Sediment Hyaline Casts Urine Mucus - Diagnostic Findings Chest x-ray: report reviewed, image reviewed Additional studies: Brain MRI results reviewed, chest x-ray, brain CT Assessment and Plan Plan: Assessment: #1. Altered mentation possibly be related to acute pancreatitis #2. Acute pancreatitis, we'll need to rule out possibility of obstructive disease, could possibly related to immunotherapy #3. Abdominal pain, and vomiting related to acute pancreatitis #4. Right upper lobe lung mass, known history of small cell carcinoma, with metastasis to the liver, and possible metastasis to the spine and pelvis post chemotherapy, most recently on Yervoy and Opdivo #5. COPD #6. Chronic and ongoing history of smoking #7. Previous episodes of pneumonia #8. Depression Plan: Agree with CT of abdomen and pelvis, we'll need to rule out obstructive pancreatitis, he has been started on IV antibiotics, breathing treatments, his chest x-ray has been reviewed, doubt underlying pneumonia. Findings and the right upper lobe consistent with patient's history of small cell carcinoma. No fever or chills, no further emesis, vital signs are stable, renal profile is stable. Continues to be lethargic, may have underlying component of sleep apnea, oncology is following. I performed a history & physical examination of the patient and discussed their management with my nurse practitioner, Sole Dougherty. I reviewed the nurse practitioner's note and agree with the documented findings and plan of care. Lung sounds are positive for diminished breath sounds throughout the lung boone. The findings and the impression was discussed with the patient. I attest to the documentation by the nurse practitioner. Time with Patient: Greater than 30
[2019-01-31] MEDS: PROCHLORPERAZINE 10 MG TAB PO SCH ×2 (16:25→23:43)
[2019-01-31] MEDS: LATANOPROST 0.005% OPHTH DROPS 2.5 ML BTL BOTH EYES SCH (16:25)
--- NOTE | 2019-01-31 18:35 | ECHOF ---
Referral Reason:KIRSTEN MEASUREMENTS -------- HEIGHT: 180.3 cm WEIGHT: 113.4 kg BP: RVIDd: 3.3 cm (< 3.3) IVSd: 1.2 cm (0.6 - 1.1) LVIDd: 4.5 cm (3.9 - 5.3) LVPWd: 1.2 cm (0.6 - 1.1) IVSs: 1.3 cm LVIDs: 3.0 cm LVPWs: 1.7 cm MV E Hugh: 0.49 m/s MV DecT: 191 ms MV A Hugh: 0.59 m/s MV E/A Ratio: 0.84 RAP: 5.00 mmHg RVSP: 15.95 mmHg FINDINGS -------- Sinus rhythm. This was a technically difficult study with suboptimal views. Limited Study The left ventricular size is normal. There is mild concentric left ventricular hypertrophy. Overa ll left ventricular systolic function is normal with, an EF between 55 - 60 %. The right ventricle is mildly enlarged. The left atrium was not well visualized. The right atrium was not well visualized. Lumason used The aortic valve was not well visualized. The mitral valve was not well visualized. The tricuspid valve was not well visualized. The pulmonic valve was not well visualized. The aortic root size is normal. IVC Not well visulized. There is a small, generalized pericardial effusion present. CONCLUSIONS -------- 1. Sinus rhythm. 2. This was a technically difficult study with suboptimal views. 3. Limited Study 4. The left ventricular size is normal. 5. There is mild concentric left ventricular hypertrophy. 6. Overall left ventricular systolic function is normal with, an EF between 55 - 60 %. 7. The right ventricle is mildly enlarged. 8. The left atrium was not well visualized. 9. The right atrium was not well visualized. 10. Lumason used 11. The aortic valve was not well visualized. 12. The mitral valve was not well visualized. 13. The tricuspid valve was not well visualized. 14. The pulmonic valve was not well visualized. 15. The aortic root size is normal. 16. IVC Not well visulized. 17. There is a small, generalized pericardial effusion present. EXHIBITIONS AND COLLECTIONS MANAGER: Yun Lawrence RDCS
--- NOTE | 2019-01-31 21:52 | CT ---
EXAMINATION TYPE: CT sinus wo/w con DATE OF EXAM: 01/31/2019 COMPARISON: MR scan today HISTORY: abnormal MR findings CT DLP: 1040.5 mGycm. Automated Exposure Control for Dose Reduction was Utilized. TECHNIQUE: CT scan of the sinuses is performed without and with contrast, axial images are obtained, coronal reformatted images are also reviewed. The contrast was Isovue 100 mL. FINDINGS: There is normal contrast opacification of the anterior middle and posterior cerebral arteri es. There is normal contrast opacification of the cavernous sinus. There is no sign of cavernous sinu s thrombosis. There is mild mucosal thickening in the ethmoid and maxillary sinuses. There is mild mu cosal thickening in the frontal and sphenoid sinuses also. I see no focal bone destruction. There is apparent bilateral surgery at the medial wall of the maxillary sinuses. There is pneumatization of th e right middle nasal turbinate. I see no focal bone destruction. IMPRESSION: Mild pansinusitis. No evidence of cavernous sinus thrombosis. Cerebral atrophy.
--- NOTE | 2019-01-31 21:59 | CT ---
EXAMINATION TYPE: CT ChestAbdPelvis w con DATE OF EXAM: 01/31/2019 COMPARISON: 12/16/2018 HISTORY: pneumonia, lung ca CT DLP: 2722.6 mGycm Automated exposure control for dose reduction was used. CONTRAST: CT scan of the chest, abdomen and pelvis is performed with Oral Contrast and with IV Contrast, patien t injected with 100 mL of Isovue 300. FINDINGS: There is large area of airspace consolidation involving the lateral right upper lobe. This extends to the right pulmonary hilum. There is increased soft tissue density in the right paratracheal region c onsistent with tumor. Right upper lobe consolidation is masslike and measures 11 x 9 cm. I see no foc al bone destruction on the chest wall. There is small pericardial effusion. There is small right pleu ral effusion. There are old posterior lateral right healed rib fractures. There is heterogeneous density throughout the liver suspicious for diffuse hepatic metastatic disease . There are multiple hypodense areas that measure up to 3 cm. Gallbladder appears normal. There is no evidence of a splenic mass. There is no sign of pancreatic mass. Gallbladder is somewhat contracted. There is no adrenal mass. There is 3 cm cortical cyst upper pole right kidney. There is no hydronephr osis. 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 There is some t hrombus on the posterior wall. There is no retroperitoneal adenopathy. Bladder distends smoothly. There is no free fluid in the pelvis. There is no inguinal hernia. There i s no mesenteric edema. There is no sign of a bowel obstruction. There is 5.5 cm thin-walled cyst in t he posterior right lobe of the liver. There is osteopenia. There is a 5% depression of the superior e ndplate T10. There is similar change at T7 vertebra. IMPRESSION: Masslike consolidation in the right upper lobe with mediastinal adenopathy consistent wit h tumor that has progressed compared to recent CT scan. Changes in the liver consistent with diffuse hepatic metastatic disease also have progressed compared to last CT scan. Mild thoracic compression fractures unchanged. There is a new small pericardial effusion compared to old exam. There is new small right pleural effu stacey.
--- NOTE | 2019-01-31 22:02 | PN ---
PROGRESS NOTE CHIEF COMPLAINT: Carcinoma of the lung, shortness of breath and pneumonia. HISTORY OF PRESENT ILLNESS: This gentleman is doing fairly well. He still cannot speak well and it is thought that he is confused. He has been seen by Oncology and an MRI of the brain has been ordered. The patient also requests to be a NO CODE. This was granted. PHYSICAL EXAM: Chest is clear. The cardiac exam is normal. His speech is nearly unintelligible. IMPRESSION: 1. Carcinoma of the right lung. 2. Pneumonitis. 3. Rule out central nervous system metastases. PLAN: 1. MRI of the brain. 2. Continue supportive care and await for recommendations of chemo and radiation therapy as well as making a discharge plan. MMODL / IJN: [id number] /
[2019-02-01] MEDS: PROCHLORPERAZINE 10 MG TAB PO SCH ×4 (05:22→23:31)
[2019-02-01] MEDS ORDERED: VANCOMYCIN TROUGH DUE 1 EACH MISC MISCELLANE ONE (07:00)
[2019-02-01] MEDS: VANCOMYCIN 1,750 MG in SODIUM CHLORIDE 0.9% 500 ML 500 ML IVPB SCH (08:18)
[2019-02-01] MEDS: CYCLOBENZAPRINE 10 MG TAB PO SCH ×3 (08:18→20:57)
[2019-02-01] MEDS: TIMOLOL 0.5% OPHTH DROPS 5 ML BTL BOTH EYES SCH ×2 (08:20→20:57)
[2019-02-01] MEDS: SODIUM CHLORIDE 0.9% 1,000 ML IV SCH ×2 (08:21→20:58)
[2019-02-01 09:16] LABS: Anion Gap 10 mmol/L; Blood Urea Nitrogen 10 mg/dL (9-20); Calcium 9.1 mg/dL (8.4-10.2); Carbon Dioxide 23 mmol/L (22-30); Chloride 105 mmol/L (98-107); Glucose 91 mg/dL (74-99); Sodium 138 mmol/L (137-145)
[2019-02-01] MEDS: IPRATROPIUM-ALBUTEROL 3 ML NEB INHALATION SCH ×4 (09:19→20:41)
--- NOTE | 2019-02-01 15:27 | PN ---
PROGRESS NOTE DATE OF SERVICE: 02/01/2019 CHIEF COMPLAINT: Small-cell carcinoma with pneumonitis and COPD. HISTORY OF PRESENT ILLNESS: This gentleman is a little bit more alert today and his speech is a little bit better. His MRI did not demonstrate any definite central nervous system neoplasm. PHYSICAL EXAMINATION: He seems to be more alert and active today. Chest demonstrates coarse rhonchi. Cardiac exam is unchanged. IMPRESSION: 1. 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 2. Bronchopneumonia. 3. Chronic obstructive pulmonary disease. PLAN: Continue with IV fluids, updrafts and antibiotics. MMODL / IJN: [id number] /
--- NOTE | 2019-02-01 15:36 | P.PN ---
Subjective Progress Note Date: 02/01/19 This is a 63-year-old white male patient with history of small cell lung carcin brock that was diagnosed in July 2018, status post chemotherapy, currently on immunotherapy, was brought into the hospital on 01/30/2019 for complaints of abdominal pain, diarrhea, increased confusion, decreased urine output, some hematuria. Patient remains confused, he is a poor historian, the history was obtained from the chart. Initially computed tomography scan of the chest in July 2018 revealed a lot right paramediastinal mass encircling the SVC. Patient was hospitalized at that time for dyspnea. 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 Patient follows with Dr. Drake. Most recent computed tomography scan of the chest/abdomen/pelvis in November 2018 reveals evidence of disease progression and significant increase in the size of a right upper lobe mass, she was started on immunotherapy in the form of Yervoy/Opdivo. Brain CT showed no acute intracranial process, chest x-ray showed persistent mass in the right upper lobe with adjacent infiltrate. MRI of the brain was obtained, and showed no diagnostic evidence of enhancing mass, and possibility of cavernous sinus abnormality. Labs showed a white blood cell count of 10.6, hemoglobin of 10.2, INR 1.1, electrolytes are within normal limits, BUN is 10, creatinine 0.58, AST was 62, ALT was 59, alkaline phosphatase was 309, LDH was 537, albumin was 2.7, amylase was 264, lipase was 2507, cortisol was 20. Urinalysis showed 1+ bilirubin, negative for lupus, no significant red blood cells oh WBCs. Her evaluation patient is mumbling, he is somnolent, blood gas was obtained and it showed a pO2 of 77, pCO2 47, and pH of 7.38. No acute distress, patient still remains confused, no evidence of respiratory difficulty, minute is obese, but nontender, and the patient is a current smoker. Does have a history of COPD, previous episodes of pneumonia, depression. No Fever or chills. CT of the abdomen and pelvis is pending. This discussed with medical oncology. Chest x-ray has been reviewed with Dr. Carey, doubt underlying pneumonia, right upper lobe opacity related to underlying lung cancer. No cough, no chest congestion. On 02/01/2019 I'm seeing this patient for a follow-up. The patient is doing better compared to yesterday. Seems to be more awake. He has typical features of obstructive sleep apnea and I have made recommendations to offer him a CPAP machine in the hospital as the patient is having obvious signs of loud snoring and witnessed apneas even during the day and at time of my evaluation. He is arousable. He is able to speak a few sentences. He is making more sense compared to yesterday. No significant abdominal pain or distention. He was diagnosed having an acute pancreatitis, probably a side effect of systemic immunotherapy. No respiratory distress. His resting comfortably in bed. He is moving all 4 extremities without any limitation. His white cell count is at 9.5 and hemoglobin is at 9.9. The blood gases was obtained yesterday showed compensated chronic hypercapnic respiratory failure probably due to obesity hypoventilation syndrome and the pH was at 7.38 with a pCO2 of 47. PO2 was at 77. The patient has normal renal function. Stool for C. diff has been negative. CAT scan of the chest abdomen and pelvis was noted. The MRI of the brain was nondiagnostic for any enhancing mass. The dural venous sinuses were patent. There was a concern for cavernous sinus abnormality/thrombosis. A dedicated CAT scan was requested by radiology regarding the possibility of cavernous sinus disease. There was nonspecific white matter changes Objective - Vital Signs Vital signs: Vital Signs Temp 97.4 F L 02/01/19 11:49 Pulse 118 H 02/01/19 12:57 Resp 17 02/01/19 11:49 BP 112/72 02/01/19 11:49 Pulse Ox 95 02/01/19 11:49 Intake & Output 01/31/19 02/01/19 02/01/19 18:59 06:59 18:59 Intake Total 875 2040 500 Balance 875 2040 500 Weight 113.398 kg Intake: Intake, IV Titration 875 1450 500 Amount Sodium Chloride 0.9% 1, 375 450 000 ml @ 75 mls/hr IV . [id number] [facility] Rx#:[id number] Vancomycin 1,750 mg In 500 Sodium Chloride 0.9% 500 ml 500 ml @ 167 mls/hr IVPB Q12H [facility] Rx#: [id number] Vancomycin 1,750 mg In 500 1000 Sodium Chloride 0.9% 500 ml 500 ml @ 167 mls/hr IVPB Q[facility]HR [facility] Rx#: [id number] Oral 590 Other: Voiding Method Toilet Toilet Toilet Urinal Urinal Urinal # Voids 2 6 1 # Bowel Movements 5 - Exam GENERAL EXAM: Confused, sleepy, but overall more arousable compared to yesterday. He is obese and has typical features of obstructive sleep apnea. The patient is having apneas and he is quite somnolent and he was falling asleep easily demonstrating snoring and witnessed apneas. HEAD: Normocephalic/atraumatic. EYES: Normal reaction of pupils, equal size. Conjunctiva pink, sclera white. NOSE: Clear with pink turbinates. THROAT: No erythema or exudates. Mallampati class IV NECK: No masses, no JVD, no thyroid enlargement, no adenopathy. CHEST: No chest wall deformity. Symmetrical expansion. LUNGS: Equal air entry with no crackles, wheeze, rhonchi or dullness. CVS: Regular rate and rhythm, normal S1 and S2, no gallops, no murmurs, no rubs ABDOMEN: Soft, nontender. No hepatosplenomegaly, normal bowel sounds, no guarding or rigidity. EXTREMITIES: No clubbing, no edema, no cyanosis, 2+ pulses and upper and lower extremities. MUSCULOSKELETAL: Muscle strength and tone normal. SPINE: No scoliosis or deformity SKIN: No rashes CENTRAL NERVOUS SYSTEM: Confused, sleepy, No focal deficits, tone is normal in all 4 extremities. - Labs CBC & Chem 7: 01/31/19 12:21 02/01/19 06:50 Labs: Abnormal Lab Results - Last 24 Hours (Table) 02/01/19 Range/Units 06:50 Creatinine 0.55 L (0.66-1.25) mg/dL Microbiology - Last 24 Hours (Table) 01/30/19 15:15 Blood Culture - Preliminary Blood No Growth after 24 hours Assessment and Plan Plan: 1 altered mental status, improving slowly. There is obviously a component of sleep apnea that has been untreated for many years. The same time there could be metabolic changes consistent with his underlying pancreatitis. MRI of the brain raises the concern for cavernous sinus thrombosis and this is to be further investigated 2 morbid obesity with a BMI of 33 4 acute pancreatitis, likely related to immunotherapy 4 abdominal pain, subsided 5 small cell lung cancer with metastases to liver and possibly metastatic to the spine and pelvis was receiving immunotherapy on outpatient basis 6 COPD 7 smoker 8 depression Plan We'll see this patient with CPAP at a pressure of 10 cm of water. CAT scan of the brain indicated for cavernous sinus thrombosis. Monitor amylase and lipase. Monitor electrolytes. IV fluids. Her glasses poor baseline above-mentioned comorbidities. We'll continue to follow.
[2019-02-01] MEDS: CHOLESTYRAMINE (WITH SUGAR) 4 GM PACKET PO SCH (17:14)
[2019-02-01] MEDS: LATANOPROST 0.005% OPHTH DROPS 2.5 ML BTL BOTH EYES SCH (17:15)
--- NOTE | 2019-02-01 19:47 | CONS ---
CONSULTATION DATE OF SERVICE: 02/01/2019. REASON FOR CONSULTATION: Pancreatitis plus-minus pneumonia, rule out meningitis. HISTORY OF PRESENT ILLNESS: The patient is a 63-year-old male with a past medical history significant for metastatic lung cancer with metastases to the liver. The patient has been on chemotherapy. The patient has been brought into the ER at [facility] 01/30/2019 for evaluation of decreased urine output, hematuria and confusion for 3 days. The patient apparently has not been eating or drinking well. The patient also having diarrhea for almost 2 weeks with low stools about 4-5 episodes per day with no blood or mucus in it. The patient denies significant abdominal pain, though. No nausea, no vomiting. With these symptoms, the patient was evaluated by the ER physician. On arrival to the ER, the patient has been afebrile and no fever has been recorded in last 2-3 days. The patient has been here in the hospital. The patient on admission did have a normal white count of 10.6, and his kidney functions were normal. His UA was negative. The patient did have a stool for C diff, which came back negative. The patient did have extensive workup including a CT of the chest, abdomen and pelvis which shows a masslike consolidation in the right upper lobe with midsternal neuropathy consistent with tumor that has progressed compared to recent CT, changes of the liver consistent with diffuse hepatic metastatic disease, also had progressed compared to the last CAT scan with mild thoracic compression fusion. The patient's bowel reported to be normal with no evidence of any colitis. An MRI of the brain did not show any evidence of a bleed or enhancing mass. The cavernous sinus CT is negative as well. The patient was started on IV vancomycin. Infectious Disease was consulted for recommendation regarding need for antibiotic therapy and question of possible meningitis. The patient categorically denies any headache to me. He did have some hallucination though. Denies having nausea, no vomiting. REVIEW OF SYSTEMS: Positive points have been mentioned in HPI. Rest of the systems are negative. PAST MEDICAL HISTORY: Metastatic lung cancer with metastases to the liver, COPD, pneumonia. PAST SURGICAL HISTORY: Right knee surgery, with biopsy. SOCIAL HISTORY: Patient current everyday smoker. No drinking or drug use. FAMILY HISTORY: Father with history of cancer. ALLERGIES: To MILK CONTAINING PRODUCTS. MEDICATION: Medications include the patient is currently on Tylenol, [place], DuoNeb, Flexeril, Dilaudid, Ativan, Narcan, Timoptic and vancomycin pharmacy to dose. PHYSICAL EXAMINATION: Blood pressure is 112/72 with a pulse of 89. Temperature 97.4. He is 95% on room air. General description is an middle-aged male up in the bed in no distress. No tachypnea or accessory muscle of respiration use. HEENT: Shows slight pallor. No scleral icterus. Oral mucosa is dry. No pharyngeal erythema or thrush. NECK: Trachea central. No thyromegaly. LUNGS: Unlabored breathing. Decreased breath sounds at the bases. No wheeze or crackle. HEART: S1, S2. Regular rate. No swelling. ABDOMEN: Soft. Mild distention. No guarding. No rigidity. No organomegaly. EXTREMITIES: No edema feet. SKIN EXAMINATION: No rash or mass palpable. NEUROLOGICAL: Patient is awake, alert, oriented x3. No signs of meningeal irritation. LABS: Hemoglobin 9.5, white count 9.5 with a BUN of 10, creatinine 0.55. Electrolytes have been normal. Liver enzymes are normal except alkaline phos slightly elevated to 261. Lactic acid 2.7 admission. Repeat is 2.0. DIAGNOSTIC IMPRESSION AND PLAN: Patient admitted to the hospital with generalized weakness, no energy, some confusion, mental status changes in this patient who did have diarrhea for more than 2 weeks now with concern for underlying medication related versus infectious etiology. Stool for C difficile already done and ruled out by negative stool for C diff test and there is no clear history of any recent antibiotic exposure. The patient did have a metastatic lung cancer. However, the CT of the chest did not mention any concern for possible postobstructive pneumonia and the patient did not have significant respiratory symptoms or concern for the same. Currently with no evidence of infection at any other site of the body clinically doubt meningitis in this patient who currently denies having any headache, no neck rigidity and is currently awake, alert, oriented x3. PLAN: 1. We will check stool cultures. Stool for C difficile is already negative. 2. We will add Questran for symptomatic relief. 3. Discontinue vancomycin as clinically no clear focus of any MRSA infection at this point. 4. We will follow the patient closely and adjust medication further if needed. Family was present at the bedside. Their questions were answered. MMODL / IJN: [id number] /
[2019-02-02] MEDS ORDERED: VANCOMYCIN 1,750 MG in SODIUM CHLORIDE 0.9% 500 ML 500 ML IVPB SCH ×2
[2019-02-02] MEDS: PROCHLORPERAZINE 10 MG TAB PO SCH ×4 (05:47→23:18)
[2019-02-02 08:07] LABS: ALT 48 U/L (21-72); AST 55 U/L (17-59); Albumin 2.5 g/dL (3.5-5.0); Alkaline Phosphatase 273 U/L (38-126); Amylase 146 U/L (30-110); Anion Gap 4 mmol/L; Blood Urea Nitrogen 8 mg/dL (9-20); Calcium 8.9 mg/dL (8.4-10.2); Carbon Dioxide 29 mmol/L (22-30); Chloride 106 mmol/L (98-107); Glucose 72 mg/dL (74-99); Lipase 1079 U/L (23-300); Potassium 4.1 mmol/L (3.5-5.1); Sodium 139 mmol/L (137-145); Total Bilirubin 0.6 mg/dL (0.2-1.3); Total Protein 5.6 g/dL (6.3-8.2)
[2019-02-02 08:18] LABS: Anisocytosis Slight; Basophils % (A) 0 %; Eosinophils # (A) 0.2 k/uL (0-0.7); Eosinophils % (A) 2 %; HGB 9.4 gm/dL (13.0-17.5); Hypochromasia Marked; Lymphocytes # (A) 1.8 k/uL (1.0-4.8); Lymphocytes % (A) 21 %; MCH 28.7 pg (25.0-35.0); MCHC 30.3 g/dL (31.0-37.0); MCV 94.6 fL (80.0-100.0); Mean Platelet Volume 8.3; Monocytes # (A) 0.5 k/uL (0-1.0); Monocytes % (A) 6 %; Neutrophils % (A) 70 %; Platelet Count 282 k/uL (150-450); RBC 3.28 m/uL (4.30-5.90); RDW 16.6 % (11.5-15.5); WBC 8.5 k/uL (3.8-10.6)
[2019-02-02] MEDS: IPRATROPIUM-ALBUTEROL 3 ML NEB INHALATION SCH ×4 (08:19→20:59)
[2019-02-02] MEDS: CYCLOBENZAPRINE 10 MG TAB PO SCH ×3 (09:32→21:19)
[2019-02-02] MEDS: TIMOLOL 0.5% OPHTH DROPS 5 ML BTL BOTH EYES SCH ×2 (09:32→17:05)
[2019-02-02] MEDS: SODIUM CHLORIDE 0.9% 1,000 ML IV SCH (09:35)
[2019-02-02] MEDS: CHOLESTYRAMINE (WITH SUGAR) 4 GM PACKET PO SCH ×2 (09:35→17:03)
--- NOTE | 2019-02-02 12:33 | XR ---
EXAMINATION TYPE: XR Hip Complete LT , 2 VIEWS DATE OF EXAM ORDERED: 02/02/2019 HISTORY: pain. COMPARISON: None. FINDINGS: There is overgrowth of the acetabulum. No fracture or dislocation is seen. No other bony d estructive lesion is seen. IMPRESSION: MILD DEGENERATIVE CHANGE.
[2019-02-02] MEDS: methylPREDNISolone SOD SUCCI 125 MG/2 ML VIAL IV SCH ×2 (13:13→17:05)
--- NOTE | 2019-02-02 13:15 | P.PN ---
Subjective Progress Note Date: 02/02/19 This is a 63-year-old white male patient with history of small cell lung carcin brock that was diagnosed in July 2018, status post chemotherapy, currently on immunotherapy, was brought into the hospital on 01/30/2019 for complaints of abdominal pain, diarrhea, increased confusion, decreased urine output, some hematuria. Patient remains confused, he is a poor historian, the history was obtained from the chart. Initially computed tomography scan of the chest in July 2018 revealed a lot right paramediastinal mass encircling the SVC. Patient was hospitalized at that time for dyspnea. 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 Patient follows with Dr. Drake. Most recent computed tomography scan of the chest/abdomen/pelvis in November 2018 reveals evidence of disease progression and significant increase in the size of a right upper lobe mass, she was started on immunotherapy in the form of Yervoy/Opdivo. Brain CT showed no acute intracranial process, chest x-ray showed persistent mass in the right upper lobe with adjacent infiltrate. MRI of the brain was obtained, and showed no diagnostic evidence of enhancing mass, and possibility of cavernous sinus abnormality. Labs showed a white blood cell count of 10.6, hemoglobin of 10.2, INR 1.1, electrolytes are within normal limits, BUN is 10, creatinine 0.58, AST was 62, ALT was 59, alkaline phosphatase was 309, LDH was 537, albumin was 2.7, amylase was 264, lipase was 2507, cortisol was 20. Urinalysis showed 1+ bilirubin, negative for lupus, no significant red blood cells oh WBCs. Her evaluation patient is mumbling, he is somnolent, blood gas was obtained and it showed a pO2 of 77, pCO2 47, and pH of 7.38. No acute distress, patient still remains confused, no evidence of respiratory difficulty, minute is obese, but nontender, and the patient is a current smoker. Does have a history of COPD, previous episodes of pneumonia, depression. No Fever or chills. CT of the abdomen and pelvis is pending. This discussed with medical oncology. Chest x-ray has been reviewed with Dr. Carey, doubt underlying pneumonia, right upper lobe opacity related to underlying lung cancer. No cough, no chest congestion. On 02/01/2019 I'm seeing this patient for a follow-up. The patient is doing better compared to yesterday. Seems to be more awake. He has typical features of obstructive sleep apnea and I have made recommendations to offer him a CPAP machine in the hospital as the patient is having obvious signs of loud snoring and witnessed apneas even during the day and at time of my evaluation. He is arousable. He is able to speak a few sentences. He is making more sense compared to yesterday. No significant abdominal pain or distention. He was diagnosed having an acute pancreatitis, probably a side effect of systemic immunotherapy. No respiratory distress. His resting comfortably in bed. He is moving all 4 extremities without any limitation. His white cell count is at 9.5 and hemoglobin is at 9.9. The blood gases was obtained yesterday showed compensated chronic hypercapnic respiratory failure probably due to obesity hypoventilation syndrome and the pH was at 7.38 with a pCO2 of 47. PO2 was at 77. The patient has normal renal function. Stool for C. diff has been negative. CAT scan of the chest abdomen and pelvis was noted. The MRI of the brain was nondiagnostic for any enhancing mass. The dural venous sinuses were patent. There was a concern for cavernous sinus abnormality/thrombosis. A dedicated CAT scan was requested by radiology regarding the possibility of cavernous sinus disease. There was nonspecific white matter changes On 02/02/2019, the patient is being seen in follow-up. Much more awake compared to yesterday. Communicating and following commands and answering questions. Try to wear his CPAP overnight to control his obstructive sleep apnea. Nevertheless, he was able to tolerate throughout the night and he worked only for a few hours. He is doing better in terms of his nausea and abdominal pain. His amylase and lipase levels have been improving. No cervical abdominal pain or tenderness. No diarrhea. No leukocytosis. No fever or chills. Renal function remains stable. No signs of any respiratory distress for now. Objective - Vital Signs Vital signs: Vital Signs Temp 98.2 F 02/02/19 11:56 Pulse 98 02/02/19 12:27 Resp 16 02/02/19 11:56 BP 99/67 02/02/19 11:56 Pulse Ox 97 02/02/19 11:56 Intake & Output 02/01/19 02/02/19 02/02/19 18:59 06:59 18:59 Intake Total 500 725 Balance 500 725 Intake: Intake, IV Titration 500 725 Amount Sodium Chloride 0.9% 1, 225 000 ml @ 75 mls/hr IV . [id number] [facility] Rx#:[id number] Vancomycin 1,750 mg In 500 500 Sodium Chloride 0.9% 500 ml 500 ml @ 167 mls/hr IVPB Q12H [facility] Rx#: [id number] Other: Voiding Method Toilet Toilet Bedside Commode Urinal Urinal Urinal # Voids 1 1 - Exam GENERAL EXAM: Mental status is much improved and almost normalized as the patient is able to speak up. Sentences and can handle in conversation on today's evaluation. His sister the bedside.. He is obese and has typical features of obstructive sleep apnea. The patient is having apneas and he is quite somnolent and he was falling asleep easily demonstrating snoring and witnessed apneas. HEAD: Normocephalic/atraumatic. EYES: Normal reaction of pupils, equal size. Conjunctiva pink, sclera white. NOSE: Clear with pink turbinates. THROAT: No erythema or exudates. Mallampati class IV NECK: No masses, no JVD, no thyroid enlargement, no adenopathy. CHEST: No chest wall deformity. Symmetrical expansion. LUNGS: Equal air entry with no crackles, wheeze, rhonchi or dullness. CVS: Regular rate and rhythm, normal S1 and S2, no gallops, no murmurs, no rubs ABDOMEN: Soft, nontender. No hepatosplenomegaly, normal bowel sounds, no guarding or rigidity. EXTREMITIES: No clubbing, no edema, no cyanosis, 2+ pulses and upper and lower extremities. MUSCULOSKELETAL: Muscle strength and tone normal. The patient is complaining of hip pain and apparently has been an ongoing problem. SPINE: No scoliosis or deformity SKIN: No rashes CENTRAL NERVOUS SYSTEM: Alert and oriented and seems to be aware of his surrounding and PEEP around him. No headaches no neck stiffness. - Labs CBC & Chem 7: 02/02/19 06:52 02/02/19 06:52 Labs: Abnormal Lab Results - Last 24 Hours (Table) 02/02/19 02/02/19 Range/Units 06:52 06:52 RBC 3.28 L (4.30-5.90) m/uL Hgb 9.4 L (13.0-17.5) gm/dL Hct 31.0 L (39.0-53.0) % MCHC 30.3 L (31.0-37.0) g/dL RDW 16.6 H (11.5-15.5) % BUN 8 L (9-20) mg/dL Creatinine 0.62 L (0.66-1.25) mg/dL Glucose 72 L (74-99) mg/dL Alkaline Phosphatase 273 H (38-126) U/L Total Protein 5.6 L (6.3-8.2) g/dL Albumin 2.5 L (3.5-5.0) g/dL Amylase 146 H (30-110) U/L Lipase 1079 H (23-300) U/L Microbiology - Last 24 Hours (Table) 01/30/19 15:15 Blood Culture - Preliminary Blood No Growth after 48 hours Assessment and Plan Plan: 1 altered mental status, improving slowly. There is obviously a component of sleep apnea that has been untreated for many years. The same time there could be metabolic changes consistent with his underlying pancreatitis. MRI of the brain raises the concern for cavernous sinus thrombosis . Meanwhile, the mental status improved considerably. The patient is wearing a CPAP overnight. Acute pancreatitis is improving.. 2 morbid obesity with a BMI of 33 4 acute pancreatitis, likely related to immunotherapy, improving 4 abdominal pain, subsided 5 small cell lung cancer with metastases to liver and possibly metastatic to the spine and pelvis was receiving immunotherapy on outpatient basis 6 COPD 7 smoker 8 depression 9 left hip pain. Plan We'll see this patient with CPAP at a pressure of 10 cm of water. CAT scan of the brain indicated for cavernous sinus thrombosis. Monitor amylase and lipase. Monitor electrolytes. IV fluids. Mental status continues to improve. Obtain x-ray of the left hip. We'll continue to follow.
--- NOTE | 2019-02-02 13:35 | P.PN ---
Subjective Progress Note Date: 02/02/19 Principal diagnosis: Small Cell Lung Cancer Still With Mental Status Changes Objective - Vital Signs Vital signs: Vital Signs Temp 98.2 F 02/02/19 11:56 Pulse 98 02/02/19 12:27 Resp 16 02/02/19 11:56 BP 99/67 02/02/19 11:56 Pulse Ox 97 02/02/19 11:56 Intake & Output 02/01/19 02/02/19 02/02/19 18:59 06:59 18:59 Intake Total 500 725 Balance 500 725 Intake: Intake, IV Titration 500 725 Amount Sodium Chloride 0.9% 1, 225 000 ml @ 75 mls/hr IV . [id number] [facility] Rx#:[id number] Vancomycin 1,750 mg In 500 500 Sodium Chloride 0.9% 500 ml 500 ml @ 167 mls/hr IVPB Q12H [facility] Rx#: [id number] Other: Voiding Method Toilet Toilet Bedside Commode Urinal Urinal Urinal # Voids 1 1 - Exam gen: Alert NAD, Breathing is labored Mouth: No mouth sores or thrush, mucus membranes dry Neck: Thick, supple, no increased adenopathy Heart: Tachy Reg Lungs: Diminished throughout, increased effort noted Abdomen: Obese, Destended, Firm, non tender Ext: Upper and lower extremity edema noted. Neuro: Unable to follow commands - Labs CBC & Chem 7: 02/02/19 06:52 02/02/19 06:52 Labs: Abnormal Lab Results - Last 24 Hours (Table) 02/02/19 02/02/19 Range/Units 06:52 06:52 RBC 3.28 L (4.30-5.90) m/uL Hgb 9.4 L (13.0-17.5) gm/dL Hct 31.0 L (39.0-53.0) % MCHC 30.3 L (31.0-37.0) g/dL RDW 16.6 H (11.5-15.5) % BUN 8 L (9-20) mg/dL Creatinine 0.62 L (0.66-1.25) mg/dL Glucose 72 L (74-99) mg/dL Alkaline Phosphatase 273 H (38-126) U/L Total Protein 5.6 L (6.3-8.2) g/dL Albumin 2.5 L (3.5-5.0) g/dL Amylase 146 H (30-110) U/L Lipase 1079 H (23-300) U/L Microbiology - Last 24 Hours (Table) 01/30/19 15:15 Blood Culture - Preliminary Blood No Growth after 48 hours Assessment and Plan Plan: Assessment and Recommendations: Acute Mental Status Changes: Lethargy and Hallucinations: - MRI without acute etiology and no clear metstatic disease, rec for Sinus evaluation placed per IR - Sosa cultures neg at this time. Pancreatitis: - Possible immune related amylase mild elevation - Lipase Increased - Likely an immune therapy Pancreatitis, will stert Solumedrol 60mg po q6 with PPI Diffuse Swelling Bilateral Upper and Lower Extremities: - Reviewed CT Scan Chest/Abdomen and Pelvis Diarrhea: - Obtain Stool Studies - Possibility of Immune related colitis, if this is confirmed high dose steroid intiation Small Cell Lung Cancer - Extensive Stage: - Previously Treated with Carboplatin and VP16 07/2018 through 09/2018 (4 Cycles) - Recent treatment with Yervoy and Opdivo - Status Post One Treatment with Oprivo and Yervoy on 01/10/19 Urinary Retention: Dysuria - Urinalysis and Culture - Santillan in place and draining Debility and Progressive Weakness: - Increase Activity once more alert - PT/OT Severe Protein Calorie Malnutrition: - - Likely related to decreased PO intake and diffuse generalized edema - POtential secondary effect of treatment with yervoy and opdivo - Dieticien, once cleared to swallow without aspiration risk - Currently too lethargic to drink, but did receive ativan prior to MRI Plan: - Will begin Solumedrol 60mg q6 IVP with PPI - Continue abx and medical management per primary team - Will re-evaluate and monitor CBC, CMP and Pancreatic Enzymes Physician Attest: I have completed the full history and physical and agree with above dictation by Mya Cristina NP. Dictated as a scribe
--- NOTE | 2019-02-02 16:00 | PN ---
PROGRESS NOTE DATE OF SERVICE: 02/02/2019 CHIEF COMPLAINT: CA of the lung and pain in the left hip. HISTORY OF PRESENT ILLNESS: This gentleman is fairly stable. He is complaining a lot of pain in the left hip and this is being x-rayed. He is being started on steroids by Oncology. PHYSICAL EXAM: He still has hoarseness and some dysarthria. Chest demonstrates decreased breath sounds throughout with occasional rhonchi. Cardiac exam is normal. IMPRESSION: 1. Carcinoma of the lung with possible recurrent laryngeal nerve involvement. 2. Pain in the left hip. 3. Chronic obstructive pulmonary disease. PLAN: 1. X-ray left hip. 2. Steroids. 3. Await further recommendations from Oncology and Pulmonology. MMODL / IJN: [id number] /
[2019-02-02] MEDS: LATANOPROST 0.005% OPHTH DROPS 2.5 ML BTL BOTH EYES SCH (17:06)
[2019-02-02] MEDS ORDERED: TIMOLOL 0.5% OPHTH DROPS 5 ML BTL BOTH EYES SCH (17:33)
[2019-02-02 20:12] LABS: Glucose,Whole Blood 139 mg/dL (75-99)
[2019-02-02] MEDS ORDERED: LATANOPROST 0.005% OPHTH DROPS 2.5 ML BTL BOTH EYES SCH (21:00)
--- NOTE | 2019-02-02 21:55 | PN ---
PROGRESS NOTE DATE OF SERVICE: 02/02/2019. REASON FOR FOLLOW UP: 1. Diarrhea, more likely immunotherapy associated. 2. Question of pneumonia. INTERVAL HISTORY: The patient is currently afebrile. Patient has been breathing comfortably. Denies having any chest pain. Very minimal cough. No nausea, no vomiting. The patient's diarrhea has slightly slowed down. No blood or mucus in the stools. PHYSICAL EXAMINATION: Blood pressure 99/67 with a pulse of 93, temperature 98.2. He is 97% on 2 L nasal cannula. General description is a middle aged male up in the bed in no distress. Respiratory system: Unlabored breathing. Decreased breath sounds at the bases. No wheeze. Heart S1, S2. Regular rate and rhythm. ABDOMEN: Soft, no tenderness. LABS: Hemoglobin 9.4, white count 8.5, BUN of 8, creatinine 0.62. Stool for C difficile is negative. Blood culture negative. Stool cultures currently pending. DIAGNOSTIC IMPRESSION AND PLAN: Patient admitted to the hospital with generalized weakness, no energy and chronic diarrhea, more likely related to his immunotherapy. The patient has been receiving for his metastatic pulmonary cancer. The patient started on steroid for the same that should be continued. In addition to the Questran. There is no need for any systemic antibiotic therapy. We will monitor the patient closely off antibiotic. Family present at bedside. Questions were answered. DEBIL / ZANA: [id number] /
[2019-02-03] MEDS: methylPREDNISolone SOD SUCCI 125 MG/2 ML VIAL IV SCH ×3 (00:14→12:30)
[2019-02-03] MEDS: SODIUM CHLORIDE 0.9% 1,000 ML IV SCH ×2 (00:14→12:32)
[2019-02-03 06:16] VITALS: RESP 16
[2019-02-03] MEDS: PROCHLORPERAZINE 10 MG TAB PO SCH ×2 (06:26→12:29)
[2019-02-03] MEDS: IPRATROPIUM-ALBUTEROL 3 ML NEB INHALATION SCH ×2 (07:46→11:47)
[2019-02-03] MEDS: CYCLOBENZAPRINE 10 MG TAB PO SCH (08:17)
[2019-02-03] MEDS: CHOLESTYRAMINE (WITH SUGAR) 4 GM PACKET PO SCH (08:18)
[2019-02-03] MEDS ORDERED: PANTOPRAZOLE 40 MG/10 ML VIAL IVP SCH (09:00)
--- NOTE | 2019-02-03 11:06 | CDI ---
Documentation Clarification Form Date: 02/03/2019 10:54:00 AM From: Rose Marie Galeano RN CCDS Admit Date: 01/30/2019 3:11:00 PM Patient Name: Faisal Delacruz Visit Number: [id number] Discharge Date: ATTENTION: The Clinical Documentation Specialists (CDI) and [facility] Coding Staff appreciate your assistance in clarifying documentation. Please respond to the clarification below the line at the bottom and electronically sign. The CDI & [facility] Coding staff will review the response and follow-up if needed. Please note: Queries are made part of the Legal Health Record. If you have any questions, please contact the author of this message via ITS. Dr. Rajeev Tijerina Acute Pancreatitis is documented in the Consults from Pulmonary , I &D and Oncology. History/Risk Factors: 63 year old male presents to the ED for abdominal pain, diarrhea and increased confusion. Medical history of Small cell lung carcinoma, Clinical Indicators: AST 62, Alk Phos 309, Amylase 264, Lipase 2507, lactic acid 2.5 Treatment: 0.9ns 1L ivfl bolus then 200cc/hr, Definition of Present on Admission (POA): A diagnosis present at the time the order for admission to inpatient status was written. For each diagnosis, documentation must be clear to determine if the condition was present at the time of the patients inpatient admission or developed during the hospital stay. Please clarify if Acute Pancreatitis was POA: ____Y = Yes, the condition was present at the time of the order for inpatient admission. ____N = No, the condition was not present at the time of the order for inpatient admission ____W = Clinically undetermined if the condition was present at the time of the order for inpatient admission. (Last Revision: Sep 2018) MTDD
--- NOTE | 2019-02-03 11:28 | CDI ---
Documentation Clarification Form Date: 02/03/2019 11:06:33 AM From: Rose Marie Galeano RN CCDS Admit Date: 01/30/2019 3:11:00 PM Patient Name: Faisal Delacruz Visit Number: [id number] Discharge Date: ATTENTION: The Clinical Documentation Specialists (CDI) and [facility] Coding Staff appreciate your assistance in clarifying documentation. Please respond to the clarification below the line at the bottom and electronically sign. The CDI & [facility] Coding staff will review the response and follow-up if needed. Please note: Queries are made part of the Legal Health Record. If you have any questions, please contact the author of this message via ITS. Dr. Rajeev Tijerina Altered Mental Status was documented in ED report, Consult by Pulmonology, Oncology and Infectious Disease History/Risk Factors: 63 year old male presents to the ED with abdominal pain and confusion. Medical History ; Small cell lung cancer. Clinical Indicators: per Pulmonology progress note 02/02/2019 altered mental status, mproving slowly.There is obviously a component of sleep apnea that has been untreated for many years.The same time there could be metabolic changes consistent with his underlying pancreatitis.MRI of the brain raises the concern for cavernous sinus thrombosis .Meanwhile, the mental status improved considerably. Labs: AST 62, Alk phos 309, Amylase 264, lipase 2507, lactic acid 2.5, CT Brain no acute intracranial process Treatment: CPAP, Ivfl, In your professional opinion, please clarify the etiology of the Altered Mental Status, if known. * Metabolic Encephalopathy due to Pancreatitis * Metabolic Encephalopathy (specify Type and Underlying Medical Illness) * Other condition (please specify) * Unable to determine (Last Revision: January 2018) MTDD
--- NOTE | 2019-02-03 11:37 | CDI ---
Documentation Clarification Form Date: 02/03/2019 11:28:21 AM From: Rose Marie Galeano RN CCDS Admit Date: 01/30/2019 3:11:00 PM Patient Name: Faisal Delacruz Visit Number: [id number] Discharge Date: ATTENTION: The Clinical Documentation Specialists (CDI) and [facility] Coding Staff appreciate your assistance in clarifying documentation. Please respond to the clarification below the line at the bottom and electronically sign. The CDI & [facility] Coding staff will review the response and follow-up if needed. Please note: Queries are made part of the Legal Health Record. If you have any questions, please contact the author of this message via ITS. Dr. Rajeev Tijerina The diagnosis bronchopneumonia was documented in the record , but is not consistently noted in subsequent documentation. History/Risk Factors: 63 year old male presents to the ED with abdominal pain and confusion . Medical history small cell lung cancer Clinical Indicators: vss 117/74 115 24 96% ra ; Wbc 10.6, lactic acid 2.7 Treatment: Cefepime ivpb given once, VAncomycin given 01/31 and 02/01 Please clarify if the above diagnosis was: * Present/active this admission * Treated and resolved this admission * Ruled out * Other, please specify * Clinically unable to determine (Last Revision: July 2018-New) MTDD
--- NOTE | 2019-02-03 12:07 | P.PN ---
Subjective Progress Note Date: 02/03/19 Principal diagnosis: Altered mental status, metabolic encephalopathy, obstructive sleep apnea syndrome, acute pancreatitis. This is a 63-year-old white male patient with history of small cell lung carcinoma that was diagnosed in July 2018, status post chemotherapy, currently on immunotherapy, was brought into the hospital on 01/30/2019 for complaints of abdominal pain, diarrhea, increased confusion, decreased urine output, some hematuria. Patient remains confused, he is a poor historian, the history was obtained from the chart. Initially computed tomography scan of the chest in July 2018 revealed a lot right paramediastinal mass encircling the SVC. Patient was hospitalized at that time for dyspnea. 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 Patient follows with Dr. Drake. Most recent computed tomography scan of the chest/abdomen/pelvis in November 2018 reveals evidence of disease progression and significant increase in the size of a right upper lobe mass, she was started on immunotherapy in the form of Yervoy/Opdivo. Brain CT showed no acute intracranial process, chest x-ray showed persistent mass in the right upper lobe with adjacent infiltrate. MRI of the brain was obtained, and showed no diagnostic evidence of enhancing mass, and possibility of cavernous sinus abnormality. Labs showed a white blood cell count of 10.6, hemoglobin of 10.2, INR 1.1, electrolytes are within normal limits, BUN is 10, creatinine 0.58, AST was 62, ALT was 59, alkaline phosphatase was 309, LDH was 537, albumin was 2.7, amylase was 264, lipase was 2507, cortisol was 20. Urinalysis showed 1+ bilirubin, negative for lupus, no significant red blood cells oh WBCs. Her evaluation patient is mumbling, he is somnolent, blood gas was obtained and it showed a pO2 of 77, pCO2 47, and pH of 7.38. No acute distress, patient still remains confused, no evidence of respiratory difficulty, minute is obese, but nontender, and the patient is a current smoker. Does have a history of COPD, previous episodes of pneumonia, depression. No Fever or chills. CT of the abdomen and pelvis is pending. This discussed with medical oncology. Chest x- ray has been reviewed with Dr. Carey, doubt underlying pneumonia, right upper lobe opacity related to underlying lung cancer. No cough, no chest congestion. Reevaluated today on 02/03/2019, patient is sitting in bed, awake, responsive, communicating fine, in no distress, and he has CPAP at bedside. Patient has no active pulmonary symptoms, labs were noted to be relatively unremarkable. Lipase and amylase have been coming down very nicely. Objective - Vital Signs Vital signs: Vital Signs Temp 97.9 F 02/03/19 05:00 Pulse 96 02/03/19 11:58 Resp 16 02/03/19 07:42 BP 120/73 02/03/19 05:00 Pulse Ox 94 L 02/03/19 05:00 Intake & Output 02/02/19 02/03/19 02/03/19 18:59 06:59 18:59 Intake Total 600 1150 Output Total 500 500 Balance 600 650 -500 Intake: Intake, IV Titration 650 Amount Sodium Chloride 0.9% 1, 650 000 ml @ 75 mls/hr IV . [id number] [facility] Rx#:[id number] Oral 600 500 Output: Urine 500 500 Other: Voiding Method Bedside Commode Bedside Commode Bedside Commode Urinal Urinal Urinal # Voids 2 1 1 # Bowel Movements 1 - Exam Physical Exam: Revealed a 63-year-old white male obese in no distress. Head: Atraumatic, normocephalic. HEENT:[Neck is supple.] [No neck masses.] [No thyromegaly.] [No JVD.] Chest: [Clear throughout, no crackles, no rhonchi, no wheezes.] Cardiac Exam: [Normal S1 and S2, no S3 gallop, no murmur.] Abdomen: [Soft, nontender, no megaly, no rebound, no guarding, normal bowel sounds.] Extremities: [No clubbing, no edema, no cyanosis.] Neurological Exam: [No focal neurologic deficit.] Psychiatric: Normal mood affect and mental status examination. Skin: No rashes - Labs CBC & Chem 7: 02/02/19 06:52 02/02/19 06:52 Labs: Abnormal Lab Results - Last 24 Hours (Table) 02/02/19 Range/Units 20:10 POC Glucose (mg/dL) 139 H (75-99) mg/dL Microbiology - Last 24 Hours (Table) 02/02/19 11:50 Stool Culture - Preliminary Stool 01/30/19 15:15 Blood Culture - Preliminary Blood No Growth after 72 hours Assessment and Plan Assessment: altered mental status, significantly improved, most likely related to metabolic encephalopathy and his enzymes including amylase lipase have dramatically improved since admission. 2 morbid obesity with a BMI of 33 4 acute pancreatitis, likely related to immunotherapy, improving 4 abdominal pain, subsided 5 small cell lung cancer with metastases to liver and possibly metastatic to the spine and pelvis was receiving immunotherapy on outpatient basis 6 COPD 7 smoker 8 depression 9 left hip pain. Recommendation: Continue present treatment plan as per admitting physician, we will sign off and see the patient on when necessary basis. Time with Patient: Less than 30
[2019-02-03 12:24] VITALS: BP 127/78; PULSE 115; TEMP 97.5
--- NOTE | 2019-02-03 13:01 | P.PN ---
Subjective Progress Note Date: 02/03/19 Principal diagnosis: Small Cell Lung Cancer Mentation improved today, Dr. Drake discussed overall goals of care and options with patient today. He discussed third line therapy and statistical responses. Patient has decided he would like to forgo third line therapy and would like to meet with hospice care for more information in the anticipation of going home with hospice from this hospitalization. Objective - Vital Signs Vital signs: Vital Signs Temp 97.5 F L 02/03/19 12:23 Pulse 115 H 02/03/19 12:23 Resp 16 02/03/19 12:23 BP 127/78 02/03/19 12:23 Pulse Ox 93 L 02/03/19 12:23 Intake & Output 02/02/19 02/03/19 02/03/19 18:59 06:59 18:59 Intake Total 600 1150 Output Total 500 500 Balance 600 650 -500 Intake: Intake, IV Titration 650 Amount Sodium Chloride 0.9% 1, 650 000 ml @ 75 mls/hr IV . [id number] [facility] Rx#:[id number] Oral 600 500 Output: Urine 500 500 Other: Voiding Method Bedside Commode Bedside Commode Bedside Commode Urinal Urinal Urinal # Voids 2 1 1 # Bowel Movements 1 - Exam gen: Alert NAD, Breathing is labored Mouth: No mouth sores or thrush, mucus membranes dry Neck: Thick, supple, no increased adenopathy Heart: Tachy Reg Lungs: Diminished throughout, increased effort noted Abdomen: Obese, Destended, Firm, non tender Ext: Upper and lower extremity edema noted. Neuro: Able to follow commands today. - Labs CBC & Chem 7: 02/02/19 06:52 02/02/19 06:52 Labs: Abnormal Lab Results - Last 24 Hours (Table) 02/02/19 Range/Units 20:10 POC Glucose (mg/dL) 139 H (75-99) mg/dL Microbiology - Last 24 Hours (Table) 02/02/19 11:50 Stool Culture - Preliminary Stool 01/30/19 15:15 Blood Culture - Preliminary Blood No Growth after 72 hours Assessment and Plan Plan: Assessment and Recommendations: Acute Mental Status Changes: Lethargy and Hallucinations: Improved - MRI without acute etiology and no clear metstatic disease, rec for Sinus evaluation placed per IR - Sosa cultures neg at this time. Pancreatitis: - Possible immune related amylase mild elevation - Lipase Increased - Likely an immune therapy Pancreatitis, will stert Solumedrol 60mg po q6 with PPI Diffuse Swelling Bilateral Upper and Lower Extremities: - Reviewed CT Scan Chest/Abdomen and Pelvis Diarrhea: - Obtain Stool Studies - Possibility of Immune related colitis, if this is confirmed high dose steroid intiation Small Cell Lung Cancer - Extensive Stage: Progression on CTs this admission - Previously Treated with Carboplatin and VP16 07/2018 through 09/2018 (4 Cycles) - Recent treatment with Yervoy and Opdivo - Status Post One Treatment with Oprivo and Yervoy on 01/10/19 Urinary Retention: Dysuria - Urinalysis and Culture - Santillan in place and draining Debility and Progressive Weakness: - Increase Activity once more alert - PT/OT Severe Protein Calorie Malnutrition: - - Likely related to decreased PO intake and diffuse generalized edema - POtential secondary effect of treatment with yervoy and opdivo - Dieticien, once cleared to swallow without aspiration risk - Currently too lethargic to drink, but did receive ativan prior to MRI Plan: - Dr. Drake had a long discussion with patient and family member at bedside today regarding third line treatment options. His CTs did show progression and with his side effect of pancreatitis immune therapy may need to be discontinued for time. Patient has decided to proceed with information and likely home with hospice care from this admission. This is felt to be resonable - Will go ahead and consult hospice information visit for plan of home hospice. RAYRAY Rendon Physician Attest: I have completed the full history and physical and agree with above dictation by Mya Cristina NP. Dictated as a scribe
--- NOTE | 2019-02-03 16:29 | PN ---
PROGRESS NOTE DATE OF SERVICE: 02/03/2019 REASON FOR FOLLOWUP: 1. Diarrhea, more likely secondary to his immunotherapy for malignancy. 2. Abnormal x-rays, clinically suspicious for pneumonia. INTERVAL HISTORY: The patient is currently afebrile. The patient is breathing comfortably. Denies having any chest pain. Very minimal cough. No nausea, no vomiting, no abdominal pain, and his diarrhea has improved. PHYSICAL EXAMINATION: Blood pressure 127/78 with a pulse of 115, temperature 97.5. He is 93% on room air. General description is a middle-aged male up in the room in no distress. RESPIRATORY SYSTEM: Unlabored breathing with decreased breath sounds at the base. HEART: S1, S2. Regular rate and rhythm. ABDOMEN: Soft. No tenderness. LABS: No new labs have been obtained today. Blood in stool; culture so far negative. DIAGNOSTIC IMPRESSION AND PLAN: Patient admitted to hospital with generalized weakness, no energy, in this patient who did have diarrhea going on for a couple of weeks. Stool for C difficile negative. Stool culture so far negative. Likely related to his immunotherapy for metastatic lung cancer. Currently being treated with steroids; to continue. No evidence of any infection; hence will hold on any systemic antibiotic. Continue with supportive care. MMODL / IJN: [id number] /
[2019-02-03] MEDS ORDERED: PROCHLORPERAZINE 5 MG TAB PO SCH (18:00)
--- NOTE | 2019-02-03 18:58 | DS ---
DISCHARGE SUMMARY CHIEF COMPLAINT: Small-cell lung cancer and mental status changes and difficulty speaking as well as right upper lobe pneumonia. HISTORY OF PRESENT ILLNESS AND PHYSICAL EXAM: Details of this man's history and physical can be found in the initial workup. LABORATORY STUDIES: While he was in the hospital, he had laboratory studies, details of which can be found in the laboratory section of his chart. COURSE IN HOSPITAL: After admission, he was placed on bedrest, started on intravenous fluids, updrafts and was seen by Oncology. An MRI of the brain was done and did not demonstrate metastatic disease. Speech improved while he was in the hospital. He did not have any particular problems with fever, chills, shortness of breath, etc. He was continuing to improve and it was felt that he could be discharged. Before leaving, hospice and palliative care were discussed and he will give this consideration. We will send him home on his usual diet and activity and was seen in the office in several days. FINAL DIAGNOSES: 1. Shortness of breath. 2. Bronchopneumonia. 3. Small cell carcinoma of the lung. 4. Chronic obstructive pulmonary disease. 5. Dysarthria. OPERATIONS: None. CONSULTATIONS: Oncology and pulmonology. He is improved. MMODL / IJN: [id number] /
--- NOTE | 2019-02-08 13:28 | MISC ---
MISCELLANOUS REPORT QUERY The answer is: Yes, condition was present at the time of the order. Other condition, related to carcinoma of the lung. Bronchopneumonia, present and active on this admission. MMODL / IJN: [id number] /
== END 2019-02-03 17:20 | disposition hospice, home (50) | DRG 193 ==
LOC: EC 11:20 → 3NMEDONC 15:11
PROVIDERS: ADMIT Family Medicine; ATTEND Family Medicine
DX: J18.0 Bronchopneumonia, unspecified organism (principal); K85.90 Acute pancreatitis without necrosis or infection, unspecified; E43 Unspecified severe protein-calorie malnutrition; G93.41 Metabolic encephalopathy; J96.12 Chronic respiratory failure with hypercapnia; E87.2 Acidosis; C78.7 Secondary malignant neoplasm of liver and intrahepatic bile duct; C79.51 Secondary malignant neoplasm of bone; I67.6 Nonpyogenic thrombosis of intracranial venous system; J44.0 Chronic obstructive pulmonary disease with (acute) lower respiratory infection; E66.2 Morbid (severe) obesity with alveolar hypoventilation; C34.91 Malignant neoplasm of unspecified part of right bronchus or lung; R44.3 Hallucinations, unspecified; Z66 Do not resuscitate; Z51.5 Encounter for palliative care; E86.0 Dehydration; R47.1 Dysarthria and anarthria; H54.7 Unspecified visual loss; H40.9 Unspecified glaucoma; F32.9 Major depressive disorder, single episode, unspecified; F17.210 Nicotine dependence, cigarettes, uncomplicated; R19.7 Diarrhea, unspecified; R33.9 Retention of urine, unspecified; T45.1X5A Adverse effect of antineoplastic and immunosuppressive drugs, initial encounter; M25.552 Pain in left hip; Z68.33 Body mass index [BMI] 33.0-33.9, adult; Z71.3 Dietary counseling and surveillance; Z79.899 Other long term (current) drug therapy; Z87.01 Personal history of pneumonia (recurrent); Z99.3 Dependence on wheelchair; Z92.21 Personal history of antineoplastic chemotherapy; Z91.011 Allergy to milk products; Z80.9 Family history of malignant neoplasm, unspecified
CPT/HCPCS: 36415; 36600; 51701; 70450; 70488; 70553; 71046; 71260; 73502; 74177; 80048; 80053; 80202; 81001; 82024; 82150; 82533; 82803; 82805; 83605; 83615; 83690; 83735; 84443; 85025; 85610; 85730; 87040; 87045; 87046; 87324; 93306; 94640; 94660; 94760; 96365; 96366; 96367; 99285